=== PATIENT | female | born 1965 | race Caucasian/White ===

== ENCOUNTER 2024-02-07 14:16 | Outpatient (RCR) | payer MEDICAID, SELFPAY ==
--- NOTE | 2024-02-18 21:04 | CTCFLWUP_ITS ---
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 April 2023: Ms. Ross had myocardial infarction. During the workup she was found to have multiple le sions in the liver. 07/31/2023: Ms. 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 aspirin - 81 mg 1 tab Daily 2. Basaglar KwikPen U-100 Insulin - 100 unit/mL (3 mL) 10 Unit Daily 3. Eliquis - 5 mg 1 tab Twice a Day 4. Jardiance - 25 mg 1 tab Daily 5. levothyroxine - 112 mcg 1 tab Daily 6. lisinopril - 5 mg 1 tab Daily 7. loratadine - 10 mg 1 tab Daily 8. pantoprazole - 40 mg 1 Daily 9. rosuvastatin - 20 mg 1 tab Daily Medications Last Reconciled by Kelley Obrien MA on 02/07/2024 ALLERGIES: Penicillins REVIEW OF SYSTEMS: A complete 14-point review of systems was performed and is negative except as noted in interval histo ry. PHYSICAL EXAMINATION: VITAL SIGNS: Temperature?99.5, B/P?131/80, Oxygen?Saturation?95% Weight?140?lbs (Change?since?01/25/24 :?-3.8?lbs) PAIN: 0 - No pain GENERAL APPEARANCE: Appears well, in no apparent distress, appropriately interactive. HEENT: Normocephalic, no temporal wasting, normal conjunctiva, no scleral icterus, normal hearing, li ps without lesions, neck normal range of motion. CARDIOVASCULAR: Not assessed. PULMONARY: Normal respiratory effort, no respiratory distress or use of accessory muscles, speaking i n full sentences, no tachypnea. EXTREMITIES: No pedal edema or cyanosis. SKIN: Normal skin appearance. NEUROLOGIC: Alert and oriented x4. PSHYCHIATRIC: Appropriate affect, mood normal, behavior normal, intact thought and speech. LABORATORY DATA: I have personally reviewed and interpreted each of the patient?s relevant lab tests, abnormal finding s are below: Date ASSESSMENT/PLAN: 1. 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 No clinical symptoms. 2. Hypothyroidism of 40 years duration. Currently Ms. Ross is on levothyroxine. 3. Type 2 diabetes of 3 years duration 4. 70 pound weight loss in 1 year (September 2022?September 2023) 5. Myocardial infarction April 2023. Currently being followed by Dr. Guillen of [place]. 1. CBC, CMP, 24-hour urine 5-HIAA levels reviewed and levels are normalized for HIAA and S chromogran in A level 2. Dotatate PET CT scan- showed numerous lesions in liver 3. Thyroid ultrasound- negative 4. GI referral for EGD and colonoscopy 5. Please get records from Dr. Guillen, finance clerk of [place]. ORDERS: Abc,cmp chromogranin level and hiaa RETURN TO CLINIC: 4 weeks If weight not stable will start chemo BILLING AND COMPLIANCE: I reviewed external records from providers outside my specialty as summarized above. I spent a total of 50 minutes on this patient?s care on the day of their visit excluding time spent related to any bi lled procedures. This time includes time spent with the patient as well as time spent documenting in the medical record, reviewing patients records and tests, obtaining history, placing orders, communi cating with other healthcare professionals, counseling the patient, family or caregiver, and/or care coordination for the diagnoses above. Electronically Signed by: Cristi Escamilla MD T: 9:01 PM CC: PCP: Sherry Christiansen Referring: Sherry Christiansen This document was completed utilizing speech recognition software. Grammatical errors, random word in sertions, pronoun errors, and incomplete sentences are an occasional consequence of this system due t o software limitations, ambient noise, and hardware issues. Any formal questions or concerns about th e content, text or information contained within the body of this dictation should be directly address ed to the provider for clarification.
== END 2024-02-20 23:59 | disposition home or self-care (01) ==
LOC: SCTC 14:16
PROVIDERS: PCP Physician Assistant; Referring Provider Physician Assistant; Visit Provider Internal Medicine Hematology & Oncology
DX: C7A.8 Other malignant neuroendocrine tumors (principal); C7B.8 Other secondary neuroendocrine tumors; E03.9 Hypothyroidism, unspecified; E11.9 Type 2 diabetes mellitus without complications; Z79.890 Hormone replacement therapy
CPT/HCPCS: 96372; 99212; 99213; J2353; G0463

== ENCOUNTER → 2024-03-04 | Outpatient (CLI) | payer MEDICAID, SELFPAY ==
--- NOTE | 2024-03-04 08:37 | XR_ITS ---
Examination: CT chest with intravenous contrast 2-D sagittal and coronal reconstructions Exam date and time: March 04, 2024 0905 hours INDICATIONS: Multiple bilateral pulmonary nodules on CT abdomen study September 21, 2023, numerous bilateral noncalcified pulmonary nodules ranging in size from 3 mm to [address] chest July 31, 2023 CTDI:vol (mGy) 7.1 DLP: (mGycm) 290 Technique: Multiple axial sections of the thorax have been obtained. Sections have been obtained, 3 mm slice thickness. Mediastinal and lung density settings have been obtained. Intravenous contrast administered, 60 cc Isovue-370. 2-D sagittal, coronal images obtained. Low dose protocols were performed. One or more of the following dose reduction techniques were used; automated exposure control, adjustment of the mA and/or KV according to patient size, use of iterative reconstruction technique. Findings: No thoracic aortic aneurysm dilatation or dissection No pulmonary artery emboli No paratracheal tracheobronchial or bronchopulmonary adenopathy Bilateral pulmonary nodules stable, no new pulmonary nodules No pneumonia or pulmonary edema No visualized liver or splenic lesion Absent gallbladder No hydronephrosis Abdominal aorta normal size IMPRESSION: Stable bilateral pulmonary nodules compared with July 31, 2023, no new pulmonary nodules
== END | disposition home or self-care (01) ==
LOC: CCTX 08:08 → SCAT 08:11
PROVIDERS: PCP Physician Assistant; Referring Provider Internal Medicine Hematology & Oncology; Visit Provider Internal Medicine Hematology & Oncology
DX: R91.8 Other nonspecific abnormal finding of lung field (principal); C22.9 Malignant neoplasm of liver, not specified as primary or secondary; C7A.1 Malignant poorly differentiated neuroendocrine tumors
CPT/HCPCS: 71260; A4649; Q9967

== ENCOUNTER 2024-03-21 13:35 | Outpatient (RCR) | payer MEDICAID, SELFPAY | END 2024-03-22 23:59 | disposition home or self-care (01) | LOC: SCTC 13:35 | PROVIDERS: PCP Physician Assistant; Referring Provider Physician Assistant; Visit Provider Internal Medicine Hematology & Oncology | DX: C7A.8 Other malignant neuroendocrine tumors (principal); C78.02 Secondary malignant neoplasm of left lung; C78.01 Secondary malignant neoplasm of right lung; E03.9 Hypothyroidism, unspecified; Z79.890 Hormone replacement therapy; E11.9 Type 2 diabetes mellitus without complications | CPT/HCPCS: 96372; J2353 ==

== ENCOUNTER 2024-03-23 18:48 | Emergency (ER) | payer MEDICAID, SELFPAY ==
[2024-03-23 18:54] VITALS: PULSE 64; RESP 18; O2SAT 99
[2024-03-23 19:54] VITALS: BP 118/79; PULSE 66; RESP 18; TEMP 37.2; O2SAT 97; BMI 22.2
--- NOTE | 2024-03-23 20:02 | XR_ITS ---
Examination: CT brain head without contrast. 2-D sagittal coronal reconstructions Date and time of exam: March 23, 2024 at 2010 hrs. Indications: Frontal headaches beginning 2 days ago CTDI: vol (mGy):45.3 DLP: (mGycm):891 Technique: Multiple CT axial sections of the brain have been obtained, 5 mm slice thickness. Contrast has not been administered. 2-D sagittal, coronal reconstructions have been obtained Low dose protocols were performed. One or more of the following dose reduction techniques were used; automated exposure control, adjustment of the mA and/or KV according to patient size, use of iterative reconstruction technique. 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 Intra-axial or extra-axial hemorrhage density is not seen. No mass effect or midline shift Basal cisterns are not remarkable. Fourth ventricle is midline. Cranial vault intact. 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
--- NOTE | 2024-03-23 20:30 | PD.EDHA ---
ED Headache RME/HPI General Chief Complaint: Headache Stated Complaint: HEADACHE Time Seen by Provider: 03/23/24 20:01 Arrival date/time: 03/23/24 18:48 58F with history of neuroendocrine tumor, ID/CAD, CVA, DM, and hypothyroidism presents to ED with 2 days of PRADO. Patient denies URI symptoms, LOC, AMS, fall/trauma, vision changes, slurred speech, weakness, and Related Data Home Medications ?Medication ?Instructions ?Recorded ?Confirmed apixaban 5 mg tablet (Eliquis) 5 mg PO BID 09/21/23 09/21/23 Held on 09/21/23. Instructions: Resume on 09/23/23. continue medication on 09/23/23 aspirin 81 mg tablet 81 mg PO QDAY 09/21/23 09/21/23 Held on 09/21/23. Instructions: Resume on 09/23/23. Continue medication on 09/23/23 cetirizine 10 mg tablet 10 mg PO QDAY 09/21/23 09/21/23 empagliflozin 25 mg tablet 25 mg PO QDAY 09/21/23 09/21/23 (Jardiance) insulin glargine 100 unit/mL (3 10 unit subcut QPM 09/21/23 09/21/23 mL) subcutaneous pen (Basaglar KwikPen U-100 Insulin) levothyroxine 112 mcg tablet 112 mcg PO QDAY 09/21/23 09/21/23 metoclopramide HCl 5 mg tablet 5 mg PO Q6HR 09/21/23 09/21/23 pravastatin 40 mg tablet 40 mg PO QDAY 09/21/23 09/21/23 Allergies Allergy/AdvReac Type Severity Reaction Status Date / Time codeine Allergy Severe VOMITING Verified 03/23/24 18:57 Penicillins Allergy Severe Hives Verified 09/21/23 08:44 Course Orders Category Date Time Status Bedside COVID-19 Antigen Test NOW Care 03/23/24 20:02 Active Bedside Influenza A&B Antigen Test NOW Care 03/23/24 20:[address] head/brain wo con Stat Exams 03/23/24 20:02 Completed Metoclopramide [Reglan] Med 03/23/24 20:32 Discontinued 10 mg PO X1 ONE SUMAtriptan INJ [Imitrex Inj] Med 03/23/24 20:32 Discontinued 6 mg SC X1 ONE Vital Signs Vital signs: Vital Signs Temperature 99.0 F 03/23/24 19:54 Pulse Rate 66 03/23/24 19:54 Respiratory Rate 18 03/23/24 19:54 Blood Pressure 118/79 03/23/24 19:54 Pulse Oximetry (%) 97 03/23/24 19:54 Oxygen Delivery Method Room Air 03/23/24 19:54 Headache Medications / Prescriptions Medication administrations:: Medication Administration History Discontinued Medications Metoclopramide HCl (Metoclopramide 5 Mg Tablet) 10 mg PO X1 ONE Stop: 03/23/24 20:33 Sumatriptan Succinate (Sumatriptan Inj 6 Mg/0.5 Ml Vial) 6 mg SC X1 ONE Stop: 03/23/24 20:33 Discharge Plan Prescriptions/Referrals Prescriptions/Med Rec: No Action cetirizine 10 mg Tablet 10 mg PO QDAY pravastatin 40 mg Tablet 40 mg PO QDAY aspirin 81 mg Tablet 81 mg PO QDAY Jardiance 25 mg Tablet 25 mg PO QDAY metoclopramide HCl 5 mg Tablet 5 mg PO Q6HR levothyroxine 112 mcg Tablet 112 mcg PO QDAY insulin glargine [Basaglar KwikPen U-100 Insulin] 100 unit/mL (3 mL) Insulin Pen 10 unit SUBCUT QPM Eliquis 5 mg Tablet 5 mg PO BID Referrals: Sherry Christiansen PA-C [Primary Care Provider] - In 1 week Patient/Caregiver Discharge Instructions Print Language: Yoruba
--- NOTE | 2024-03-23 20:38 | EKG_ITS ---
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
--- NOTE | 2024-03-23 20:39 | EDRME_ITS ---
Rapid Medical Screening Exam [facility] Arrival date/time: 03/23/24 18:48 58F with history of neuroendocrine tumor, GA/CAD, DM, and hypothyroidism presents to ED with 2 days of PRADO and dizziness. Patient denies URI symptoms, LOC, AMS, fall/trauma, vision changes, slurred speech and weakness. Patient's head CT shows old CVA, but patient does not recall ever having one. Chief Complaint: Headache Time Seen by Provider: 03/23/24 20:01 Vital signs: Vital Signs Temperature 99.0 F 03/23/24 19:54 Pulse Rate 66 03/23/24 19:54 Respiratory Rate 18 03/23/24 19:54 Blood Pressure 118/79 03/23/24 19:54 Pulse Oximetry (%) 97 03/23/24 19:54 Oxygen Delivery Method Room Air 03/23/24 19:54
[2024-03-23] MEDS: METOCLOPRAMIDE 5 MG TABLET 10 MG PO (20:48)
[2024-03-23] MEDS: SUMAtriptan INJ 6 MG/0.5 ML VIAL SC (20:48)
[2024-03-23 21:30] LABS: Basophils # (Auto) 0.1 Thou/mm3 (0.0-0.2); Basophils % (Auto) 1 % (0-2.5); Eosinophils # (Auto) 0.2 Thou/mm3 (0.0-0.5); Eosinophils % (Auto) 2 % (0-10); Hematocrit 44.4 % (36.0-46.0); Hemoglobin 14.4 g/dL (12.0-16.0); Immature Granulocytes % (Auto) 0 % (0-0); Immature Granulocytes Auto 0.03 Thou/mm3 (0.00-0.00); Lymphocytes # (Auto) 2.5 Thou/mm3 (1.0-4.8); Lymphocytes % (Auto) 29 % (10-50); Mean Corpuscular HGB Conc 32.4 g/dl (31.0-37.0); Mean Corpuscular Hemoglobin 30.9 pg (25.0-35.0); Mean Corpuscular Volume 95 fL (80-100); Monocytes # (Auto) 0.6 Thou/mm3 (0.0-0.8); Monocytes % (Auto) 7 % (0-12); Neutrophils # (Auto) 5.1 Thou/mm3 (1.8-7.7); Neutrophils % (Auto) 60 % (37-80); Nucleated Red Blood Cell % 0 /100 WBC (0); Platelet Count 254 Thou/mm3 (140-440); RDW Standard Deviation 44.1 fL (36.4-46.3); Red Blood Count 4.66 Miln/mm3 (4.00-5.20); White Blood Count 8.4 Thou/mm3 (3.6-11.0)
[2024-03-23 21:31] VITALS: BP 113/78; PULSE 68; RESP 16; TEMP 36.8; O2SAT 94
[2024-03-23 21:31] LABS: Collection Type, Urine Clean Catch
[2024-03-23 22:06] LABS: Bilirubin,Urine Negative (Negative); Blood,Urine Negative (Negative); Clarity,Urine Clear (Clear/Hazy); Color,Urine Colorless (Lt Yel-Yel); Glucose, Urine 4+ (Negative); Ketones,Urine Negative (Negative); Leukocyte Esterase,Urine Negative (Negative); Nitrite,Urine Negative (Negative); Protein,Urine Negative (Neg - Trace); RBC,Urine 2 /hpf (0-3); Specific Gravity,Urine 1.014 (1.001-1.035); Squamous Epithelial Cell,Urine < 1 /hpf (0-5); Urobilinogen,Urine Negative mg/dL (0.0-1.0); WBC,Urine < 1 /hpf (0-5)
[2024-03-23 22:09] LABS: Amphetamine/Methamp Scrn,U Negative (Negative); Barbiturate Screen,Urine Negative (Negative); Benzodiazepines Screen,Urine Negative (Negative); Benzoylecgonine Screen, Ur Negative (Negative); Fentanyl Screen,Urine Negative (Negative); Opiate Screen,Urine Negative (Negative); THC Screen,Urine Negative (Negative)
[2024-03-23 22:11] LABS: Alanine Aminotransferase 7 U/L (10-49); Albumin, Serum 4.8 gm/dL (3.5-5.0); Albumin/Globulin Ratio 1.4 (1.2-2.2); Alkaline Phosphatase 97 U/L (46-116); Anion Gap 9 (7-16); Aspartate Amino Transferase 16 U/L (0-34); BUN/Creatinine Ratio 20 Ratio (12-20); Bilirubin,Total 0.4 mg/dL (0.3-1.2); Blood Urea Nitrogen 20 mg/dL (9-23); Calcium 10.6 mg/dL (8.3-10.6); Calcium (Corrected) 10.6 mg/dL (8.5-10.1); Chloride 106 mMol/L (98-107); Estimated Creatinine Clearance 58.9 mL/min (>60); Globulin 3.4 gm/dL (2.3-3.5); Glucose 72 mg/dL (74-106); Osmolality,Calculated 288 (275-295); Potassium 4.6 mMol/L (3.4-5.1); Sodium 144 mMol/L (136-145); Total Protein 8.2 gm/dL (5.7-8.2); Troponin I < 0.020 ng/mL (0.0-0.045); eGFR > 60 See Note
== END 2024-03-24 05:32 | disposition left against medical advice (07) ==
LOC: SERX 20:23
PROVIDERS: Physician Assistant; Emergency Provider Emergency Medicine; PCP Physician Assistant
DX: R51.9 Headache, unspecified (principal); Z53.29 Procedure and treatment not carried out because of patient's decision for other reasons; R42 Dizziness and giddiness
CPT/HCPCS: 36415; 70450; 80053; 80307; 81001; 84484; 85025; 87400; 87811; 93005; 96372; 99284; J3030; A9270

== ENCOUNTER 2024-04-18 12:55 | Outpatient (RCR) | payer MEDICAID, SELFPAY ==
--- NOTE | 2024-04-03 13:48 | CTCFLWUP_ITS ---
Patient: FLAKITA ROSS : 1965 Page 2 of 2 FOLLOW UP NOTE DATE OF SERVICE: 04/03/2024 NAME: FLAKITA ROSS ACCOUNT: [id number] : 1965 AGE: 58 INTERVAL HISTORY: Patient doing better since start of therapy . patient is doing well. She have not lost any further weight and is stable. ONCOLOGY HISTORY:?[facility] Hx? 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 April 2023: Ms. Ross had myocardial infarction. During the workup she was found to have multiple lesions in the liver. 07/31/2023: Ms. 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 aspirin - 81 mg 1 tab Daily 2. Basaglar KwikPen U-100 Insulin - 100 unit/mL (3 mL) 10 Unit Daily 3. Eliquis - 5 mg 1 tab Twice a Day 4. Jardiance - 25 mg 1 tab Daily 5. levothyroxine - 112 mcg 1 tab Daily 6. lisinopril - 5 mg 1 tab Daily 7. loratadine - 10 mg 1 tab Daily 8. pantoprazole - 40 mg 1 Daily 9. rosuvastatin - 20 mg 1 tab Daily?[place] Meds? Medications Last Reconciled by Kelley Obrien MA on 02/07/2024 ALLERGIES: Penicillins REVIEW OF SYSTEMS: A complete 14-point review of systems was performed and is negative except as noted in interval history. PHYSICAL EXAMINATION:?[place] PE? VITAL SIGNS: Temperature?98.9, B/P?114/78, Oxygen?Saturation?98% Weight?142?lbs (Change?since?03/21/24:?-0.8?lbs) PAIN: 0 - No pain ECOG Performance Status: 0 - Asymptomatic and fully active GENERAL APPEARANCE: Appears well, in no apparent distress, appropriately interactive. HEENT: Normocephalic, no temporal wasting, normal conjunctiva, no scleral icterus, normal hearing, lips without lesions, neck normal range of motion. CARDIOVASCULAR: Not assessed. PULMONARY: Normal respiratory effort, no respiratory distress or use of accessory muscles, speaking in full sentences, no tachypnea. EXTREMITIES: No pedal edema or cyanosis. SKIN: Normal skin appearance. NEUROLOGIC: Alert and oriented x4. PSHYCHIATRIC: Appropriate affect, mood normal, behavior normal, intact thought and speech. LABORATORY DATA: I have personally reviewed and interpreted each of the patient?s relevant lab tests, abnormal findings are below: Date 03/23/24 ??WHITE?BLOOD?COUNT?(Thou/mm3) 8.4 ??RED?BLOOD?COUNT?(Miln/mm3) 4.66 ??HEMOGLOBIN?(gm/dl) 14.4 ??HEMATOCRIT?(%) 44.4 ??PLATELET?COUNT?(Thou/mm3) 254 ??NEUTROPHILS?%,?AUTO?(%) 60 ??LYMPH?%,?AUTO?(%) 29 ??NEUTROPHILS,?AUTO?(Thou/mm3) 5.1 ASSESSMENT/PLAN:?Lulú Escamilla Assessment/Plan? 1. 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 No clinical symptoms. 2. Hypothyroidism of 40 years duration. Currently Ms. Ross is on levothyroxine. 3. Type 2 diabetes of 3 years duration 4. 70 pound weight loss in 1 year (September 2022?September 2023) 5. Myocardial infarction April 2023. Currently being followed by Dr. Guillen of [place]. 1. CBC, CMP, 24-hour urine 5-HIAA levels reviewed and levels are normalized for HIAA and S chromogranin A level 2. Dotatate PET CT scan- showed numerous lesions in liver 3. Thyroid ultrasound- negative Serum chromogranin A HIAA normal Weight is stable Continue Sandostatin #2 Patient having a toothache. Inflammation noted Ordered antibiotics and advised to follow-up with PCP/dentist CBC CMP HIAA serum chromogranin level Referral placed to [facility] for second opinion RETURN TO CLINIC: I will see her back in the clinic in 3 months. BILLING AND COMPLIANCE: I reviewed external records from providers outside my specialty as summarized above. I spent a total of 50 minutes on this patient?s care on the day of their visit excluding time spent related to any billed procedures. This time includes time spent with the patient as well as time spent documenting in the medical record, reviewing patients records and tests, obtaining history, placing orders, communicating with other healthcare professionals, counseling the patient, family or caregiver, and/or care coordination for the diagnoses above. Electronically Signed by: Cristi Escamilla MD T: 1:46 PM CC: PCP: Sherry Christiansen Referring: Sherry Christiansen This document was completed utilizing speech recognition software. Grammatical errors, random word insertions, pronoun errors, and incomplete sentences are an occasional consequence of this system due to software limitations, ambient noise, and hardware issues. Any formal questions or concerns about the content, text or information contained within the body of this dictation should be directly addressed to the provider for clarification.
== END 2024-04-19 23:59 | disposition home or self-care (01) ==
LOC: SCTC 12:55
PROVIDERS: PCP Physician Assistant; Referring Provider Physician Assistant; Visit Provider Internal Medicine Hematology & Oncology
DX: C7A.8 Other malignant neuroendocrine tumors (principal); C78.02 Secondary malignant neoplasm of left lung; C78.01 Secondary malignant neoplasm of right lung; E03.9 Hypothyroidism, unspecified; E11.9 Type 2 diabetes mellitus without complications; I25.2 Old myocardial infarction; K08.89 Other specified disorders of teeth and supporting structures
CPT/HCPCS: 96372; 99212; J2353; G0463

== ENCOUNTER 2024-05-16 12:55 | Outpatient (RCR) | payer MEDICAID, SELFPAY ==
[2024-05-16 13:36] LABS: Alanine Aminotransferase 11 U/L (10-49); Albumin, Serum 4.2 gm/dL (3.4-4.8); Albumin/Globulin Ratio 1.4 (1.2-2.2); Alkaline Phosphatase 96 U/L (46-116); Anion Gap 7 (7-16); Aspartate Amino Transferase 18 U/L (0-34); BUN/Creatinine Ratio 13 Ratio (12-20); Bilirubin,Total 0.4 mg/dL (0.3-1.2); Blood Urea Nitrogen 14 mg/dL (9-23); Calcium 9.4 mg/dL (8.3-10.6); Calcium (Corrected) 9.4 mg/dL (8.5-10.1); Carbon Dioxide 26.7 mMol/L (20.0-31.0); Chloride 102 mMol/L (98-107); Creatinine (Component) 1.1 mg/dL (0.6-1.3); Globulin 2.9 gm/dL (2.3-3.5); Glucose 218 mg/dL (74-106); Osmolality,Calculated 279 (275-295); Potassium 3.9 mMol/L (3.4-5.1); Sodium 136 mMol/L (136-145); Total Protein 7.1 gm/dL (5.7-8.2); eGFR 58 See Note
== END 2024-05-20 23:59 | disposition home or self-care (01) ==
LOC: SCTC 12:55
PROVIDERS: PCP Family Medicine; Referring Provider Internal Medicine Hematology & Oncology; Visit Provider Internal Medicine Hematology & Oncology
DX: C7A.8 Other malignant neuroendocrine tumors (principal); C7B.8 Other secondary neuroendocrine tumors; E03.9 Hypothyroidism, unspecified; Z79.890 Hormone replacement therapy; E11.9 Type 2 diabetes mellitus without complications; I25.2 Old myocardial infarction
CPT/HCPCS: 80053; 96360; 96372; J2353

== ENCOUNTER 2024-06-13 12:43 | Outpatient (RCR) | payer MEDICAID, SELFPAY | END 2024-06-19 23:59 | disposition home or self-care (01) | LOC: SCTC 12:43 | PROVIDERS: PCP Family Medicine; Referring Provider Family Medicine; Visit Provider Internal Medicine Hematology & Oncology | DX: C7A.8 Other malignant neuroendocrine tumors (principal); C7B.8 Other secondary neuroendocrine tumors | CPT/HCPCS: 96372; J2353 ==

== ENCOUNTER 2024-07-11 13:43 | Outpatient (RCR) | payer MEDICAID, SELFPAY ==
--- NOTE | 2024-07-01 14:49 | CTCFLWUP_ITS ---
Patient: FLAKITA ROSS : 1965 Page 2 of 2 FOLLOW UP NOTE DATE OF SERVICE: 07/01/2024 NAME: FLAKITA ROSS ACCOUNT: [id number] : 1965 AGE: 59 INTERVAL HISTORY: Subjective: Chief Complaint Persistent fatigue, uncontrolled diabetes, tired all the time History of Present Illness Zackery Lee is a patient with a history of cancer, presenting for follow-up. The patient reports ongoing fatigue but stable weight. The patient's main complaint is persistent tiredness. They state, I'm still tired, without specifying onset or severity. Despite the fatigue, the patient reports no recent weight loss, which is noted as a positive indicator of disease stability. The patient's current weight is 140 pounds, down from 212 pounds at the start of their illness, representing a total weight loss of 75 pounds over an unspecified period. The patient also mentions difficulty controlling their diabetes, describing it as off the hook. They report taking Jardiance and insulin for diabetes management. The patient describes a concerning blood sugar fluctuation, stating that after a breakfast of scrambled eggs and water, their blood sugar naman from 146 to 226. Their diet is reportedly limited, with the patient stating, I hardly eat anything. The patient mentions a recent consultation with a doctor in [place] who suggested a possible GI involvement and recommended a colonoscopy. However, the patient reports no current issues with diarrhea, which was previously a concern. Medications and Supplements - Jardiance - Insulin Review of Systems General: Positive for fatigue. Negative for weight loss. Endocrine: Positive for uncontrolled diabetes. Gastrointestinal: Negative for diarrhea. 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 April 2023: Ms. Ross had myocardial infarction. During the workup she was found to have multiple lesions in the liver. 07/31/2023: Ms. 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 aspirin - 81 mg 1 tab Daily 2. Augmentin - 500-125 mg 1 tab 1 tab twice daily 3. Basaglar KwikPen U-100 Insulin - 100 unit/mL (3 mL) 10 Unit Daily 4. Eliquis - 5 mg 1 tab Twice a Day 5. Jardiance - 25 mg 1 tab Daily 6. levothyroxine - 112 mcg 1 tab Daily 7. lisinopril - 5 mg 1 tab Daily 8. loratadine - 10 mg 1 tab Daily 9. pantoprazole - 40 mg 1 Daily 10. rosuvastatin - 20 mg 1 tab Daily Medications Last Reconciled by Yoly Lynn MD on 07/01/2024 ALLERGIES: Penicillins REVIEW OF SYSTEMS: A complete 14-point review of systems was performed and is negative except as noted in interval history. PHYSICAL EXAMINATION: VITAL SIGNS: Temperature?98.3, B/P?110/71, Oxygen?Saturation?98% Weight?140?lbs (Change?since?06/13/24:?-1.4?lbs) PAIN: 0 - No pain ECOG Performance Status: 1 - Symptomatic; ambulatory; restricted in strenuous activity GENERAL APPEARANCE: Appears well, in no apparent distress, appropriately interactive. HEENT: Normocephalic, no temporal wasting, normal conjunctiva, no scleral icterus, normal hearing, lips without lesions, neck normal range of motion. CARDIOVASCULAR: Not assessed. PULMONARY: Normal respiratory effort, no respiratory distress or use of accessory muscles, speaking in full sentences, no tachypnea. EXTREMITIES: No pedal edema or cyanosis. SKIN: Normal skin appearance. NEUROLOGIC: Alert and oriented x4. PSHYCHIATRIC: Appropriate affect, mood normal, behavior normal, intact thought and speech. LABORATORY DATA: I have personally reviewed and interpreted each of the patient?s relevant lab tests, abnormal findings are below: Date 03/23/24 05/16/24 ??WHITE?BLOOD?COUNT?(Thou/mm3) 8.4 ? ??RED?BLOOD?COUNT?(Miln/mm3) 4.66 ? ??HEMOGLOBIN?(gm/dl) 14.4 ? ??HEMATOCRIT?(%) 44.4 ? ??PLATELET?COUNT?(Thou/mm3) 254 ? ??NEUTROPHILS?%,?AUTO?(%) 60 ? ??LYMPH?%,?AUTO?(%) 29 ? ??NEUTROPHILS,?AUTO?(Thou/mm3) 5.1 ? ??GLUCOSE,RANDOM?(mg/dL) 72?L 218?H ??BLOOD?UREA?NITROGEN?(mg/dL) 20 14 ??CREATININE?(mg/dL) 1.00 1.10 ??SODIUM?(mmol/L) 144 136 ??POTASSIUM?(mmol/L) 4.6 3.9 ??CHLORIDE?(mmol/L) 106 102 ??CrCl?(CandG)?(ml/min) 61.94 54.99 ??AST/SGOT?(Unit/L) 16 18 ??ALT/SGPT?(Unit/L) 7?L 11 ??ALKALINE?PHOSPHATASE?(Unit/L) 97 96 ??BILIRUBIN,?TOTAL?(mg/dL) 0.4 0.4 ??PROTEIN?TOTAL?(gm/dl) 8.2 7.1 ??ALBUMIN,?SERUM?(gm/dl) 4.8 4.2 ??GLOBULIN?(gm/dl) 3.4 2.9 ??ALBUMIN/GLOBULIN?RATIO 1.4 1.4 ??CALCIUM,?SERUM?(mg/dL) 10.6 9.4 ??CALCIUM?SERUM?(CORRECTED)?(mg/dL) 10.6?H 9.4 ASSESSMENT/PLAN: 1. 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 No clinical symptoms. 2. Hypothyroidism of 40 years duration. Currently Ms. Ross is on levothyroxine. 3. Type 2 diabetes of 3 years duration 4. 70 pound weight loss in 1 year (September 2022?September 2023) 5. Myocardial infarction April 2023. Currently being followed by Dr. Guillen of [facility]. Assessment and Plan: Zackery lee, patient with neuroendocrine tumor metastatic to liver, presents for follow-up with improving chromogranin levels and stable weight, but reports persistent fatigue and uncontrolled diabetes. Neuroendocrine tumor metastatic to liver Assessment: Patient's condition appears stable based on improving chromogranin levels (61 in May, down from 74 in March and 65 prior) and stable weight. Previous PET-DOTATATE scan from November showed numerous liver lesions. Patient reports persistent fatigue but denies weight loss. Lab results show WBC 6.8, hemoglobin 13.8, and normal liver enzymes, further supporting disease stability. Plan: - Order repeat PET-DOTATATE scan to assess current status of liver lesions - Refer to [facility] for evaluation of potential new treatment options, including targeted radionuclide therapy - Continue current treatment regimen - Follow-up appointment in 3 months - Advise patient to maintain current weight and avoid alcohol consumption Uncontrolled diabetes mellitus Assessment: Patient reports difficulty controlling blood glucose levels despite current management with Jardiance and insulin. Recent example of blood glucose rising from 146 to 226 after a meal of scrambled eggs and water suggests significant glycemic instability. Plan: - Refer to endocrinology for comprehensive diabetes management - Advise patient on importance of proper diet and medication adherence Fatigue Assessment: Patient reports persistent fatigue. This symptom may be related to the underlying neuroendocrine tumor, diabetes, or other factors. Plan: - Monitor fatigue in context of overall disease management and diabetes control - Reassess at next follow-up appointment ORDERS: Order # Description [id number] Comprehensive Metabolic Panel - 12 + CBC with Auto Diff [id number] Chromogranin A [id number] Follow Up 3 Months [id number] CBC + Comprehensive Metabolic Panel [id number] Lab Appointment [id number] CBC + Comprehensive Metabolic Panel [id number] Lab Appointment [id number] CBC + Comprehensive Metabolic Panel [id number] Lab Appointment [id number] CBC + Comprehensive Metabolic Panel [id number] Lab Appointment [id number] CBC + Comprehensive Metabolic Panel [id number] Lab Appointment [id number] PET/CT of Skull to mid-thigh for Restaging [id number] CBC + Comprehensive Metabolic Panel [id number] Lab Appointment [id number] CBC + Comprehensive Metabolic Panel [id number] Lab Appointment [id number] CBC + Comprehensive Metabolic Panel [id number] Lab Appointment [id number] CBC + Comprehensive Metabolic Panel [id number] Lab Appointment [id number] CBC + Comprehensive Metabolic Panel [id number] Lab Appointment [id number] CBC + Comprehensive Metabolic Panel [id number] Lab Appointment [id number] CBC + Comprehensive Metabolic Panel [id number] Lab Appointment [id number] CBC + Comprehensive Metabolic Panel [id number] Lab Appointment [id number] CBC + Comprehensive Metabolic Panel [id number] Lab Appointment [id number] CBC + Comprehensive Metabolic Panel [id number] Lab Appointment [id number] CBC + Comprehensive Metabolic Panel [id number] Lab Appointment [id number] CBC + Comprehensive Metabolic Panel [id number] Lab Appointment RETURN TO CLINIC: BILLING AND COMPLIANCE: I reviewed external records from providers outside my specialty as summarized above. I spent a total of 50 minutes on this patient?s care on the day of their visit excluding time spent related to any billed procedures. This time includes time spent with the patient as well as time spent documenting in the medical record, reviewing patients records and tests, obtaining history, placing orders, communicating with other healthcare professionals, counseling the patient, family or caregiver, and/or care coordination for the diagnoses above. Electronically Signed by: Cristi Escamilla MD T: 2:47 PM CC: PCP: Fan Saucedo Referring: Fan Saucedo This document was completed utilizing speech recognition software. Grammatical errors, random word insertions, pronoun errors, and incomplete sentences are an occasional consequence of this system due to software limitations, ambient noise, and hardware issues. Any formal questions or concerns about the content, text or information contained within the body of this dictation should be directly addressed to the provider for clarification.
== END 2024-07-20 23:59 | disposition home or self-care (01) ==
LOC: SCTC 13:43
PROVIDERS: PCP Family Medicine; Referring Provider Family Medicine; Visit Provider Internal Medicine Hematology & Oncology
DX: C7A.8 Other malignant neuroendocrine tumors (principal); C7B.8 Other secondary neuroendocrine tumors; E03.9 Hypothyroidism, unspecified; Z79.890 Hormone replacement therapy; E11.65 Type 2 diabetes mellitus with hyperglycemia; Z79.4 Long term (current) use of insulin; Z79.84 Long term (current) use of oral hypoglycemic drugs; R53.83 Other fatigue
CPT/HCPCS: 96372; 99212; J2353; G0463

== ENCOUNTER 2024-07-24 14:53 | Inpatient (IN) | payer MEDICAID, SELFPAY ==
[2024-07-24] VITALS (7 sets, daily range): BP systolic 99–122; BP diastolic 61–73; PULSE 109–116; RESP 15–20; TEMP 36.7–36.8; O2SAT 96–100
[2024-07-24] MEDS: SODIUM CHLORIDE 0.9% 1000 ML 1,000 ML 999 ML IV ×2 (15:42→18:02)
[2024-07-24] MEDS: ONDANSETRON INJ 2 MG/ML INJ 2 ML 4 MG IVP ×2 (15:42→22:16)
[2024-07-24 16:07] LABS: Basophils % (Auto) 0 % (0-2.5); Eosinophils % (Auto) 0 % (0-10); Hematocrit 45.3 % (36.0-46.0); Hemoglobin 14.4 g/dL (12.0-16.0); Immature Granulocytes % (Auto) 1 % (0-0); Immature Granulocytes Auto 0.16 Thou/mm3 (0.00-0.00); Lymphocytes # (Auto) 1.2 Thou/mm3 (1.0-4.8); Lymphocytes % (Auto) 8 % (10-50); Mean Corpuscular HGB Conc 31.8 g/dl (31.0-37.0); Mean Corpuscular Volume 101 fL (80-100); Monocytes # (Auto) 0.6 Thou/mm3 (0.0-0.8); Monocytes % (Auto) 4 % (0-12); Neutrophils # (Auto) 12.6 Thou/mm3 (1.8-7.7); Neutrophils % (Auto) 86 % (37-80); Nucleated Red Blood Cell % 0 /100 WBC (0); Platelet Count 274 Thou/mm3 (140-440); RDW Standard Deviation 48.1 fL (36.4-46.3); White Blood Count 14.5 Thou/mm3 (3.6-11.0)
[2024-07-24 16:21] LABS: Alanine Aminotransferase 23 U/L (10-49); Albumin, Serum 4.4 gm/dL (3.4-4.8); Albumin/Globulin Ratio 1.6 (1.2-2.2); Alkaline Phosphatase 100 U/L (46-116); Aspartate Amino Transferase 22 U/L (0-34); BUN/Creatinine Ratio 16 Ratio (12-20); Bilirubin,Total 0.4 mg/dL (0.3-1.2); Blood Urea Nitrogen 26 mg/dL (9-23); Calcium 9.2 mg/dL (8.3-10.6); Calcium (Corrected) 9.2 mg/dL (8.5-10.1); Chloride 105 mMol/L (98-107); Creatinine (Component) 1.6 mg/dL (0.6-1.3); Globulin 2.7 gm/dL (2.3-3.5); Glucose 393 mg/dL (74-106); Lipase 24 U/L (12-53); Osmolality,Calculated 309 (275-295); Potassium 4.4 mMol/L (3.4-5.1); Sodium 145 mMol/L (136-145); Total Protein 7.1 gm/dL (5.7-8.2); eGFR 37 See Note
--- NOTE | 2024-07-24 16:30 | PC.NURSE ---
PT CAME IN DUE TO NAUSEA AND VOMITING SINCE YESTERDAY WITH BACK PAIN. PT STATED THAT SHE HAS HX OF DM AND USES INSULIN. PT IS ALSO HAVING BODY CHILLS BUT HAS DENIES FEVER. FLUID BOLUS STARTED AND PT HAS IV LINE TO RT AC. PT PLACED ON MONITOR/PULSE OX.
[2024-07-24 16:31] LABS: Anion Gap 23 (7-16); Carbon Dioxide 17.5 mMol/L (20.0-31.0)
[2024-07-24 17:01] LABS: Collection Type, Urine Clean Catch
[2024-07-24 17:12] LABS: Bilirubin,Urine Negative (Negative); Blood,Urine Trace (Negative); Clarity,Urine Clear (Clear/Hazy); Color,Urine Lt-Yellow (Lt Yel-Yel); Culture Indicated,Urine Not Indicated; Glucose, Urine 4+ (Negative); Ketones,Urine 2+ (Negative); Leukocyte Esterase,Urine Positive (Negative); Nitrite,Urine Negative (Negative); PH,Urine 5.5 (5.0-7.0); Protein,Urine Trace (Neg - Trace); RBC,Urine 3 /hpf (0-3); Squamous Epithelial Cell,Urine 1 /hpf (0-5); Urobilinogen,Urine Negative mg/dL (0.0-1.0); WBC,Urine 6 /hpf (0-5)
--- NOTE | 2024-07-24 17:37 | PD.EDADULT ---
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 She is complaining of generalized abdominal pain due to the amount of vomiting. She states her blood sugars have been elevated for an unknown reason. She currently takes Basaglar 15 units at bedtime, Jardiance 25 mg daily, and uses a short acting insulin with her evening meal according to sliding scale. Her last dose of insulin was 4 units. She denies any recent illness with fever, chills, cough, upper respiratory symptoms. Related Data Home Medications ?Medication ?Instructions ?Recorded ?Confirmed apixaban 5 mg tablet (Eliquis) 5 mg PO BID 09/21/23 09/21/23 Held on 09/21/23. Instructions: Resume on 09/23/23. continue medication on 09/23/23 aspirin 81 mg tablet 81 mg PO QDAY 09/21/23 09/21/23 Held on 09/21/23. Instructions: Resume on 09/23/23. Continue medication on 09/23/23 cetirizine 10 mg tablet 10 mg PO QDAY 09/21/23 09/21/23 empagliflozin 25 mg tablet 25 mg PO QDAY 09/21/23 09/21/23 (Jardiance) insulin glargine 100 unit/mL (3 10 unit subcut QPM 09/21/23 09/21/23 mL) subcutaneous pen (Basaglar KwikPen U-100 Insulin) levothyroxine 112 mcg tablet 112 mcg PO QDAY 09/21/23 09/21/23 metoclopramide HCl 5 mg tablet 5 mg PO Q6HR 09/21/23 09/21/23 pravastatin 40 mg tablet 40 mg PO QDAY 09/21/23 09/21/23 Allergies Allergy/AdvReac Type Severity Reaction Status Date / Time codeine Allergy Severe VOMITING Verified 07/24/24 14:57 Penicillins Allergy Severe Hives Verified 07/24/24 14:57 Review of Systems Review of Systems Systems Reviewed: All systems reviewed, normal except as documented Past Medical History Past Medical History NEUROLOGIC: Negative Neurological Disorders, Cerebrovascular Accident, Transient Ischemic Attacks (TIA), Dementia, Alzheimer's Disease, Parkinson's Disease, Brain Tumor, Meningitis, Seizures, Epilepsy, Multiple Sclerosis, Cerebral Palsy, Amyotrophic Lateral Sclerosis (ALS/Angelika Gehrig's), Guillain-[place] Syndrome, Spina Bifida, Paralysis, Peripheral Neuropathy, Calderón's Palsy, Subdural Hematoma, Migraine, Head Trauma, Spinal Cord Injury or Traumatic Brain Injury CARDIAC: Positive Cardiac Disorders ([facility] HEART ATTACK APRIL 2023), Heart Murmur, Hypercholesterolemia and Hypertension; Negative Myocardial Infarction, Cardiac Arrhythmia, Atrial Fibrillation, Angina, Coronary Artery Disease, Atherosclerotic Heart Disease, Peripheral Vascular Disease, Aneurysm, Congestive Heart Failure, Congenital Heart Disease, Valvular Heart Disease, Rheumatic Fever, Cardiomyopathy, Edema, Pericarditis, Cellulitis, Deep Vein Thrombosis, Hypotension or Varicose Veins RESPIRATORY: Negative Chronic Obstructive Pulmonary Disease (COPD), Asthma, Bronchitis, Emphysema, Pneumonia, Pulmonary Fibrosis, Cystic Fibrosis, Tuberculosis, Pulmonary Embolism, Pulmonary Edema or Sleep Apnea GASTROINTESTINAL: Positive Gastrointestinal Disorders and Gall Bladder Disease (REMOVE); Negative Hepatitis, Cirrhosis, Pancreatitis, Celiac Disease, Gastrointestinal Bleed, Esophageal Varices, Quigley's Esophagus, Colitis, Ulcerative Colitis, Diverticulitis, Diverticulosis, Ulcer, Colorectal Cancer, Irritable Bowel, Crohn's Disease, Obstructive Bowel, Hiatal Hernia, Hemorrhoids, Gastroesophageal Reflux Disease or Obesity GENITOURINARY: Negative Genitourinary Disorders, Renal Disease, Kidney Stones, Polycystic Kidney Disease, Neurogenic Bladder, Inguinal Hernia, Dialysis, Prostate Cancer or Benign Prostatic Hyperplasia REPRODUCTIVE: Positive Previous Pregnancies (3); Negative Breast Cancer, Endometriosis, Genital Herpes, Gonorrhea, Pelvic Inflammatory Disease, Syphilis, Testicular Cancer or Uterine Prolapse MUSCULOSKELETAL: Positive Musculoskeletal Disorders and Arthritis; Negative Muscular Dystrophy, Myasthenia Gravis, Marfan's Syndrome, Bone Cancer, Rheumatoid Arthritis, Osteoporosis, Degenerative Disk Disease, Gout, Scoliosis, Carpal Tunnel Syndrome, Fibromyalgia, Fractures, Degenerative Joint Disease, Osteomyelitis or Poliovirus ENT: Negative Cataracts, Glaucoma, Blind, Retinal Detachment, Macular Degeneration, Ear Infection, Deafness, Head Trauma or Eye Prosthesis ENDOCRINE: Positive Endocrine Disorders, Diabetes Mellitus Type 2 and Hypoglycemia; Negative Diabetes Mellitus Type 1, Karon's Syndrome, Waller's Disease, Hyperthyroidism, Hypothyroidism, Parathyroid Disease, Pituitary Disease, Systemic Lupus Erythematosus, Syndrome of Inappropriate Antidiuretic Hormone (SIADH), Adrenal Disease or Graves' Disease HEMATOLOGIC: Positive Blood Disorders and Anemia; Negative Leukemia, Hemophilia, Thalassemia, Sickle Cell Disease or Clotting Problems PSYCHO/SOCIAL: Negative Psychiatric Problems, Schizophrenia, Recreational Drug Use, Bipolar Disorder, Depression, Anxiety, Behavior Problems, Self-Mutilation, Attention Deficit Disorder, Attention Deficit Hyperactivity Disorder, Depression, Post Traumatic Stress Disorder or Eating Disorder OTHER HISTORY: Positive Chicken Pox, Cancer (liver 2023) and Lung Cancer (2023 neuroendocrine tumor); Negative Hospitalization, Autoimmune Disease, Down Syndrome, Autism, Developmental Delay, Shingles, Falls, Blood Transfusions, Blood Transfusion Reaction, Anesthesia Reactions, Organ Transplant, Chemotherapy, Radiation Therapy, Hyperbaric Therapy, MRSA, VRSA, Vancomycin-Resistant Enterococci, Human Immunodeficiency Virus (HIV), Measles, Mumps, Rubella ([place] Measles), Pertussis, Clostridium Difficile, Breast Cancer, Cervical Cancer, Colorectal Cancer, Ovarian Cancer, Prostate Cancer or Testicular Cancer Family History FAMILY HISTORY: Positive Family Respiratory Disorders (COPD), Family Cancer (DAD LEUKEMIA) and Family Surgery; Negative Family Psychiatric Problems, Family Cardiac Disorders, Family Gastrointestinal Problems or Family Anesthesia Reaction Surgical History SURGICAL: Positive Cardiac Catheterization, Angiogram and Tubal Ligation; Negative Cardiac Surgery, Open Heart Surgery, Coronary Artery Bypass Graft, Valve Replacement, Vascular Surgery, Coronary Stent, Pacemaker, Auto Implanted Cardiovert Defib, Carotid Endarterectomy, Endocrine Surgery, Thyroidectomy, Ear Surgery, Tympanostomy Tube, Eye Surgery, Nose Surgery, Oral Surgery, Tonsillectomy, Adenoidectomy, Cochlear Implant, Corneal Transplant, Throat Surgery, Abdominal Surgery, Tracheostomy, Gastric Bypass Surgery, Gastrostomy, Bowel Surgery, Nephrectomy, Transurethral Resection, Joint Replacement, Amputation, Open Reduction Internal Fixation, Arthroscopy, Neurologic Surgery, Brain Shunt, Mastectomy, Lumpectomy, Hysterectomy, Section, Vasectomy or Organ Transplant Social History SMOKING STATUS: Never smoker SUBSTANCE USE: does not use ED Exam Narrative Physical exam: Alert and oriented, pleasant 59-year-old female, mild acute distress due to nausea. Dry mucous membranes. Lungs are clear, regular rate and rhythm. Abdomen is soft with mild RUQ tenderness. Moves all extremities well. 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 She is complaining of generalized abdominal pain due to the amount of vomiting. She states her blood sugars have been elevated for an unknown reason. She currently takes Basaglar 15 units at bedtime, Jardiance 25 mg daily, and uses a short acting insulin with her evening meal according to sliding scale. Her last dose of insulin was 4 units. She denies any recent illness with fever, chills, cough, upper respiratory symptoms. Alert and oriented, pleasant 59-year-old female, mild acute distress due to nausea. Dry mucous membranes. Lungs are clear, regular rate and rhythm. Abdomen is soft with mild RUQ tenderness. Trace bilateral lower extremity pitting edema. Moves all extremities well. Labs reveal an elevated white count of 14.5, normal H&H, elevated ANC of 12.6. CMP reveals a CO2 of 17.5, gap of 23, BUN 26, creatinine 1.6, EGFR 37, glucose 393, A1c 9.9, osmolality 309, lactic acid 3.0, CRP 3.2, serum ketones 5.9, procalcitonin 0.99. ABG reveals a pH of 7.20, pCO2 29, PO2 100, bicarb 11, base excess -16. Urinalysis reveals 4+ glucose, 2+ ketones, 6 WBCs, no bacteria. Chest x-ray reveals no active disease. Orders Category Date Time Status Bedside Blood Glucose NOW Care 07/24/24 19:24 Active Glucose [Bedside Blood Glucose] NOW Care 07/24/24 21:57 Active Intake and Output Routine Care 07/24/24 20:25 Ordered XR chest 1V portable Stat Exams 07/24/24 20:23 Completed Acetone [Beta Hydroxybutyrate] Stat Lab 07/24/24 20:41 Completed Arterial Blood Gas Stat Lab 07/24/24 20:49 Completed Blood Culture (Lab) Stat Lab 07/24/24 20:41 Received CBC Stat Lab 07/24/24 15:57 Completed CRP [C-Reactive Protein] Stat Lab 07/24/24 20:41 Completed Comprehensive Metabolic Panel Stat Lab 07/24/24 15:57 Completed Glycohemoglobin w (eAG) Stat Lab 07/24/24 20:41 Completed Lactate (Lactic Acid) Stat Lab 07/24/24 20:41 Results Lipase Stat Lab 07/24/24 15:57 Completed Magnesium Stat Lab 07/24/24 20:41 Completed Phosphorous Stat Lab 07/24/24 20:41 Completed Procalcitonin Stat Lab 07/24/24 20:41 Completed UA, C/S IF [Urinalysis, C/S if Indicated] Stat Lab 07/24/24 16:55 Completed Urinalysis Stat Lab 07/24/24 20:25 Ordered Urine Culture Stat Lab 07/24/24 16:55 Received Morphine Inj Med 07/24/24 21:49 Discontinued 4 mg IVP X1 ONE Ondansetron Inj [Zofran Inj] Med 07/24/24 15:10 Discontinued 4 mg IVP X1 ONE Ondansetron Inj [Zofran Inj] Med 07/24/24 21:49 Discontinued 4 mg IVP X1 ONE Ringers Lactated 1000 ml [Lactated Ringers] 1,000 ml Med 07/24/24 17:49 Discontinued IV 999 mls/hr Sodium Chloride 0.9% 1000 ml [Ns] 1,000 ml Med 07/24/24 15:10 Discontinued IV 999 mls/hr Sodium Chloride 0.9% 1000 ml [Ns] 1,000 ml Med 07/24/24 17:50 Discontinued IV 999 mls/hr Vital Signs Vital signs: Vital Signs Temperature 98.2 F 07/24/24 15:08 Pulse Rate 116 H 07/24/24 15:08 Respiratory Rate 20 07/24/24 15:08 Blood Pressure 99/64 07/24/24 15:08 Pulse Oximetry (%) 96 07/24/24 15:08 Oxygen Delivery Method Room Air 07/24/24 15:08 Critical Care Time Critical Care Time Critical Care Time: Yes Total Critical Care Time (min.): 60 Discharge Plan Plan Patient Disposition: Admit Acute Care w/in Hospital Discharge Disposition comment: Stable Prescriptions/Referrals Prescriptions/Med Rec: No Action cetirizine 10 mg Tablet 10 mg PO QDAY pravastatin 40 mg Tablet 40 mg PO QDAY aspirin 81 mg Tablet 81 mg PO QDAY Jardiance 25 mg Tablet 25 mg PO QDAY metoclopramide HCl 5 mg Tablet 5 mg PO Q6HR levothyroxine 112 mcg Tablet 112 mcg PO QDAY insulin glargine [Basaglar KwikPen U-100 Insulin] 100 unit/mL (3 mL) Insulin Pen 10 unit SUBCUT QPM Eliquis 5 mg Tablet 5 mg PO BID Referrals: No Primary/Family,Physician [Primary Care Provider] - In 1 week Problem List Clinical Impression: DKA (diabetic ketoacidosis) Patient/Caregiver Discharge Instructions Print Language: Togolese Stand Alone Forms: Keiko Award Info., Patient Portal Info Letter PA/DAYLIN Supervising Physician TRACY/DAYLIN Supervising Physician: Dr. 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 She is complaining of generalized abdominal pain due to the amount of vomiting. She states her blood sugars have been elevated for an unknown reason. She currently takes Basaglar 15 units at bedtime, Jardiance 25 mg daily, and uses a short acting insulin with her evening meal according to sliding scale. Her last dose of insulin was 4 units. She denies any recent illness with fever, chills, cough, upper respiratory symptoms. Alert and oriented, paul 59-year-old female, mild acute distress due to nausea. Dry mucous membranes. Lungs are clear, regular rate and rhythm. Abdomen is soft with mild RUQ tenderness. Trace bilateral lower extremity pitting edema. Moves all extremities well. Labs reveal an elevated white count of 14.5, normal H&H, elevated ANC of 12.6. CMP reveals a CO2 of 17.5, gap of 23, BUN 26, creatinine 1.6, EGFR 37, glucose 393, A1c 9.9, osmolality 309, lactic acid 3.0, CRP 3.2, serum ketones 5.9, procalcitonin 0.99. ABG reveals a pH of 7.20, pCO2 29, PO2 100, bicarb 11, base excess -16. Urinalysis reveals 4+ glucose, 2+ ketones, 6 WBCs, no bacteria. Chest x-ray reveals no active disease. She was given D50 and started on an Insulin drip . She has normal Potassium and Magnesium level at this time. Dr. Hess contacted for admission. Clinical Information Provided by patient Medical Records Reviewed [facility] Meds/Rx Considered, not Ordered None Labs/Rad/Tests considered, not Ordered None Chronic Illness/Social Conditions which may negatively complicate care or outcome(s)-explain: None or not applicable Lab Interpretation Labs: interpreted by vt Lab(s) interpretation(s): Labs reveal an elevated white count of 14.5, normal H&H, elevated ANC of 12.6. CMP reveals a CO2 of 17.5, gap of 23, BUN 26, creatinine 1.6, EGFR 37, glucose 393, A1c 9.9, osmolality 309, lactic acid 3.0, CRP 3.2, serum ketones 5.9, procalcitonin 0.99. ABG reveals a pH of 7.20, pCO2 29, PO2 100, bicarb 11, base excess -16. Urinalysis reveals 4+ glucose, 2+ ketones, 6 WBCs, no bacteria. Repeat blood sugar 337. Imaging Imaging interpretation: other (Per radiologist.) Radiology reports / interpretation(s): Chest x-ray reveals no active disease. Medication Administration(s) Medication Administration History Discontinued Medications Sodium Chloride (Ns) 1,000 mls @ 999 mls/hr IV .Q1H1M ONE Stop: 07/24/24 16:10 Last Infusion: 07/24/24 16:36 Dose: Infused Documented By: Admin: 07/24/24 15:42 Dose: 999 mls/hr Documented By: SOILA Lactated Ringer's (Lactated Ringers) 1,000 mls @ 999 mls/hr IV .Q1H1M ONE Stop: 07/24/24 18:49 Last Admin: 07/24/24 17:51 Dose: Not Given Documented By: NERI Non-Admin Reason: Cancelled by Provider Sodium Chloride (Ns) 1,000 mls @ 999 mls/hr IV .Q1H1M ONE Stop: 07/24/24 18:50 Last Infusion: 07/24/24 19:18 Dose: Infused Documented By: Admin: 07/24/24 18:02 Dose: 999 mls/hr Documented By: NERI Morphine Sulfate (Morphine Sulf Inj 10 Mg/Ml Vial) 4 mg IVP X1 ONE Stop: 07/24/24 21:50 Ondansetron HCl (Ondansetron Inj 2 Mg/Ml Inj 2 Ml) 4 mg IVP X1 ONE; Protocol Stop: 07/24/24 15:11 Last Admin: 07/24/24 15:42 Dose: 4 mg Documented By: SOILA Ondansetron HCl (Ondansetron Inj 2 Mg/Ml Inj 2 Ml) 4 mg IVP X1 ONE; Protocol Stop: 07/24/24 21:50 Sodium chloride 2 L, morphine 4 mg IV and Zofran 4 mg IV x 2, D50 IV and Insulin Drip. Diagnosis Differential diagnosis: N/V, gastroenteritis, pyelo, PNA, DKA, hyperosmolar non-ketotic hyperglycem Most likely dx, and/or detailed dx discussion: DKA Dispositon Disposition: Admit
--- NOTE | 2024-07-24 19:21 | PC.NURSE ---
REPORT GIVEN TO FABY ALFARO.
--- NOTE | 2024-07-24 20:23 | XR_ITS ---
Examination: AP chest single view TECHNIQUE: AP portable upright chest single view Date and time: July 24, [id number] hours Comparison November 06, 2021 INDICATIONS: Vomiting today. FINDINGS: Normal heart size. No aspiration pneumonia. No pulmonary edema. The osseous structures are intact IMPRESSION: No active disease
[2024-07-24 20:58] LABS: Base Excess -16 (-3-3); HCO3 11 mEq/L (20-26); Inspired Oxygen, FIO2 21 %; O2 Saturation 98 % (91-98); PCO2 29 mmHg (32.0-48.0); PO2 100 mmHg (83-108)
[2024-07-24 21:05] LABS: Allen Test Performed/OK; Puncture Site Right Radial
[2024-07-24 21:07] LABS: Beta Hydroxybutyrate 5.9 mmol/L (<0.6)
[2024-07-24 21:12] LABS: Glucose Estimated Average 237 mg/dL (80-131); Hemoglobin A1C 9.9 % Hgb (4.8-6.0)
[2024-07-24 21:19] LABS: C-Reactive Protein 3.2 mg/dL (0.0-0.9); Magnesium 2.3 mg/dL (1.6-2.6); Phosphorous 4.9 mg/dL (2.4-5.1); Procalcitonin 0.99 ng/ml (0.0-0.49)
--- NOTE | 2024-07-24 21:29 | PC.NURSE ---
pt requesting nausea and pain meds. TRACY Sandra made aware
[2024-07-24 22:03] LABS: Collection Type, Urine Clean Catch
[2024-07-24 22:18] LABS: Bilirubin,Urine Negative (Negative); Blood,Urine Trace (Negative); Clarity,Urine Clear (Clear/Hazy); Color,Urine Colorless (Lt Yel-Yel); Glucose, Urine 4+ (Negative); Ketones,Urine 3+ (Negative); Leukocyte Esterase,Urine Positive (Negative); Nitrite,Urine Negative (Negative); PH,Urine 5.5 (5.0-7.0); Protein,Urine Trace (Neg - Trace); RBC,Urine 3 /hpf (0-3); Specific Gravity,Urine 1.029 (1.001-1.035); Squamous Epithelial Cell,Urine 1 /hpf (0-5); Urobilinogen,Urine Negative mg/dL (0.0-1.0); WBC,Urine 4 /hpf (0-5)
[2024-07-24] MEDS: MORPHINE SULF INJ 10 MG/ML VIAL 4 MG IVP (22:18)
--- NOTE | 2024-07-24 23:36 | PD.RESHP ---
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 Patient states her symptoms began 1 day prior, at around 5 PM without any inciting factors reported. She estimates she has vomited 50 times total since, has had difficulty eating and drinking since, has consumed mostly water only last 2 days. She does endorse that she had a cough for roughly 1 week prior to the onset of non-bloody vomiting. No prior episodes are reported, patient also denies any unusual dietary changes in recent weeks. Patient endorses compliance to her medications, including Basaglar, Jardiance and sliding scale insulin. Patient also endorses compliance to Eliquis, which was given for a clot that was found during a heart catheterization, as well as levothyroxine. Of note, patient follows oncology for her neuroendocrine tumor treatment, endorses sandostatin treatment every 26 days with last treatment on 07/15/2024. Since starting her neuroendocrine tumor treatment roughly 1 year ago, patient endorses elevation in her glucose recordings, but denies any history of DKA. Patient denies any nausea or vomiting at time of examination, ROS is unremarkable. 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 Review of Systems Review of Systems Narrative Review of Systems: GENERAL: Denies fevers/chills or diaphoresis. HEENT: Denies headache or visual/hearing changes. Denies nasal discharge. NEURO: Denies unusual weakness or difficulty speaking. CARDIO: Denies chest pain or palpitations. PULM: Denies SOB, coughing, or wheezing. GI: Endorsed vomiting prior to examation in ED. Denies abdominal pain, vomiting, diarrhea. URO: Denies burning/itching/pain/urinary changes. 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, insulin-dependent diabetes mellitus type 2, hypothyroidism, and myocardial infarction FH: heart conditions (unclear), Crohn's disease Surgical Hx: Tubal ligation, heart catheterization Social Hx: No tobacco, alcohol, or drug use Travel Hx: No recent travel Exam Vital Signs Temp Pulse Resp BP Pulse Ox O2 Del Method 98.1 F 114 H 20 122/73 99 Room Air 07/24/24 19:50 07/24/24 19:50 07/24/24 19:50 07/24/24 19:50 07/24/24 19:50 07/24/24 19:50 Narrative Exam General: AOx3, cooperative, in no acute distress HEENT: Atraumatic/normocephalic, TRISH, neck supple, oral mucosa appears dry Heart: RRR, S1 and S2 without clicks or murmurs Lungs: Clear on auscultation bilaterally, no difficulty breathing Abdomen: Soft, nontender. Bowel sounds present on all quadrants Skin: Intact, no cyanosis or edema noted. Peripheral pulses palpable Neuro: No focal neurological deficits noted Results: Labs 07/24/24 15:57 07/24/24 15:57 Labs: Short CBC 07/24/24 Range/Units 15:57 WBC 14.5 H (3.6-11.0) Thou/mm3 Hgb 14.4 (12.0-16.0) g/dL Hct 45.3 (36.0-46.0) % Plt Count 274 (140-440) Thou/mm3 BMP 07/24/24 15:57 Sodium 145 Potassium 4.4 Chloride 105 Carbon Dioxide 17.5 L BUN 26 H Creatinine 1.6 H Glucose 393 H Calcium 9.2 Liver Function 07/24/24 Range/Units 15:57 Total Bilirubin 0.4 (0.3-1.2) mg/dL AST 22 (0-34) U/L ALT 23 (10-49) U/L Alkaline Phosphatase 100 (46-116) U/L Albumin 4.4 (3.4-4.8) gm/dL Urine 07/24/24 07/24/24 Range/Units 16:55 21:43 Urine Color Lt-Yellow Colorless A (Lt Yel-Yel) Urine Clarity Clear Clear (Clear/Hazy) Urine pH 5.5 5.5 (5.0-7.0) Ur Specific [place] 1.030 1.029 (1.001-1.035) Urine Protein Trace Trace (Neg - Trace) Urine Glucose (UA) 4+ A 4+ A (Negative) ABG Interpretation ABG results: 07/24/24 20:49 ABG pH 7.20 L ABG pCO2 29 L ABG pO2 100 ABG HCO3 11 L ABG O2 Saturation 98 ABG Base Excess -16 L Quality Measures Quality Measures VTE prophylaxis Medications Home Medications and Allergies Home Medications ?Medication ?Instructions ?Recorded ?Confirmed ?Type apixaban 5 mg tablet (Eliquis) 5 mg PO BID 09/21/23 09/21/23 History Held on 09/21/23. Instructions: Resume on 09/23/23. continue medication on 09/23/23 aspirin 81 mg tablet 81 mg PO QDAY 09/21/23 09/21/23 History Held on 09/21/23. Instructions: Resume on 09/23/23. Continue medication on 09/23/23 cetirizine 10 mg tablet 10 mg PO QDAY 09/21/23 09/21/23 History empagliflozin 25 mg tablet 25 mg PO QDAY 09/21/23 09/21/23 History (Jardiance) insulin glargine 100 unit/mL (3 10 unit subcut QPM 09/21/23 09/21/23 History mL) subcutaneous pen (Basaglar KwikPen U-100 Insulin) levothyroxine 112 mcg tablet 112 mcg PO QDAY 09/21/23 09/21/23 History metoclopramide HCl 5 mg tablet 5 mg PO Q6HR 09/21/23 09/21/23 History pravastatin 40 mg tablet 40 mg PO QDAY 09/21/23 09/21/23 History Allergies Allergy/AdvReac Type Severity Reaction Status Date / Time codeine Allergy Severe VOMITING Verified 07/24/24 14:57 Penicillins Allergy Severe Hives Verified 07/24/24 14:57 Visit Medications Insulin Human Regular (Myxredlin) 100 unit in 100 mls @ 6.35 mls/hr IV .[id number] PRN; Protocol PRN Reason: PER PROTOCOL Stop: 08/23/24 22:32 Discontinued Medications Dextrose (Dextrose 50%-Water Inj 50 Ml Syringe) 50 ml IVP X1 ONE Stop: 07/24/24 22:32 Sodium Chloride (Ns) 1,000 mls @ 999 mls/hr IV .Q1H1M ONE Stop: 07/24/24 16:10 Last Infusion: 07/24/24 16:36 Dose: Infused Lactated Ringer's (Lactated Ringers) 1,000 mls @ 999 mls/hr IV .Q1H1M ONE Stop: 07/24/24 18:49 Last Admin: 07/24/24 17:51 Dose: Not Given Sodium Chloride (Ns) 1,000 mls @ 999 mls/hr IV .Q1H1M ONE Stop: 07/24/24 18:50 Last Infusion: 07/24/24 19:18 Dose: Infused Insulin Human Regular (Insulin Hum Regular 1 Unit/0.01 Ml (Per Unit)) 6.4 unit 0.1 unit/kg (6.4 unit) IV X1 ONE Stop: 07/24/24 22:21 Last Admin: 07/24/24 22:34 Dose: Not Given Morphine Sulfate (Morphine Sulf Inj 10 Mg/Ml Vial) 4 mg IVP X1 ONE Stop: 07/24/24 21:50 Last Admin: 07/24/24 22:18 Dose: 4 mg Ondansetron HCl (Ondansetron Inj 2 Mg/Ml Inj 2 Ml) 4 mg IVP X1 ONE; Protocol Stop: 07/24/24 15:11 Last Admin: 07/24/24 15:42 Dose: 4 mg Ondansetron HCl (Ondansetron Inj 2 Mg/Ml Inj 2 Ml) 4 mg IVP X1 ONE; Protocol Stop: 07/24/24 21:50 Last Admin: 07/24/24 22:16 Dose: 4 mg Assessment & Plan Plan Patient is a 59-year-old female with history of metastatic well-differentiated neuroendocrine tumor, 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 Will be started in IV insulin drip following DKA protocol and admitted to ICU for further management. Neurological ? No active issue Cardiovascular #History of Myocardial infarction #?History of thrombus Patient endorses a history of [place], has had catheterizations done and follows press tender Dr. Guillen in [place], [place] Patient endorses taking Eliquis 5mg BID for a clot that was found on heart cath, location of thrombus unclear Plan ? Continue eliquis 5mg BID Respiratory ? No active issue Gastrointestinal ? No active issue Renal #Acute kidney injury, likely pre-renal Creatinine 1.6 from baseline of ~1.0, in setting of vomiting and poor PO intake Plan: ? Fluid resuscitation as part of DKA protocol ? Trend renal panel Endocrine #Diabetic Ketoacidosis Etiologies include viral infection in last week, home jardiance medication, and neuroendocrine tumor treatment with sandostatin Glucose 393, beta-hydroxybutyrate/acetoacetate 5.9, pH 7.20, PCO2 29, HCO3 11, and ketones in urine at time of admission. A1c 9.9 Plan: ? Begin IV insulin infusion following DKA protocol ? Consider stopping jardiance prior to discharge, replace with alternative diabetic medication ? Follow up with oncology regarding neuroendocrine tumor management #History of Hypothyroidism Plan: ? Resume home levothroxine 112 mcg daily ? Complete med rec pending Infectious Disease ? No active issue, CRP and procal elevation likely related to DKA findings, no clear infectious source at this time requiring antibiotics Hematology/Oncology #History of metastatic well-differentiated neuroendocrine tumor Plan ? Continue outpatient follow up with oncology team ? Patient endorses hyperglycemia readings following sandostatin treatment, advised to follow up with oncology regarding these findings Diet: NPO DVT prophylaxis: home Eliquis 5mg BID GI prophylaxis: None Code status: Limited (no intubations, chest compressions permitted) Disposition: Admitted to ICU for IV insulin drip following DKA protocol. Patient case discussed with attending physician Dr. Deshawn Choi DO PGY-3 Attending Provider Attestation/Addendum I, Amelie Hess DO, attest that I was physically present for the coronado portions of the service and evaluated the patient with the resident and I reviewed and discussed the case with the resident and agree with the resident's findings and plans of care as documented above Patient is a 59-year-old female with past medical history of hypothyroidism, type 2 insulin-dependent diabetes mellitus, ?Ventricular thrombus, neuroendocrine tumor in lung and liver on octreotide who presented to the ED with intractable nausea and vomiting that began at 5pm yesterday. Patient has been unable to tolerate any PO intake due to persistent N/V. She reports some abdominal pain due to recurrent wretching. She states she had a cough that began last week after her grandchildren visited. She also endorsed having subjective fevers. However, CXR is negative and afebrile on presentation. Patient found to have DKA in the ED with metabolic acidosis with bicarb 17.5 and pH of 7.20, anion gap of 23 and ALLISON with creatinine of 1.6. Patient states she uses 15 units of basaglar and 4 units prior to dinner. She also takes jardiance. Patient states she has been taking her medications despite her current symptoms. She states she was diagnosed with type 2 DM about 3 years ago. However, she noted increasing more trouble with controlling BG since starting octreotide for treatment of her neuroendocrine tumors one year ago. BG was 337 on presentation. Will admit patient to ICU for DKA and start on insulin drip. Will check BMP q4h. On exam, patient appears to be dry with dry oral mucosa. She remains tachycardic. Lungs are CTAB/L. Abdomen is soft, nondistended and nontender. Patient is A&Ox3. No skin lesions or breaks in skin noted.
[2024-07-24 23:49] LABS: Reflex Lactate? Y
[2024-07-24] MEDS: RINGERS LACTATED 1000 ML 1,000 ML 250 ML IV (23:56)
[2024-07-24] MEDS: INSULIN REG 100 UNITS/100 ML 100 UNIT/100 ML BAG 6.35 UNIT IV (23:57)
[2024-07-25] VITALS (149 sets, daily range): BP systolic 84–108; BP diastolic 52–67; PULSE 69–109; RESP 9–96; TEMP 36.1–37.2; O2SAT 92–100; BMI 20.5; BMI 21.4
[2024-07-25 00:05] LABS: Lactic Acid, 3 HR 1.7 mMol/L (0.4-2.0)
[2024-07-25 00:28] LABS: Albumin, Serum 4.3 gm/dL (3.4-4.8); Anion Gap 25 (7-16); BUN/Creatinine Ratio 20 Ratio (12-20); Blood Urea Nitrogen 30 mg/dL (9-23); Calcium 9.1 mg/dL (8.3-10.6); Calcium (Corrected) 9.1 mg/dL (8.5-10.1); Chloride 111 mMol/L (98-107); Creatinine (Component) 1.5 mg/dL (0.6-1.3); Glucose 353 mg/dL (74-106); Magnesium 2.4 mg/dL (1.6-2.6); Osmolality,Calculated 312 (275-295); Phosphorous 4.6 mg/dL (2.4-5.1); Potassium 4.8 mMol/L (3.4-5.1); Sodium 147 mMol/L (136-145); eGFR 40 See Note
[2024-07-25 00:34] LABS: Carbon Dioxide 11.1 mMol/L (20.0-31.0)
[2024-07-25] MEDS: POTASSIUM CHL 10 mEq IVPB 10 MEQ/100 ML BAG 50 MEQ IV ×3 (01:32→05:38)
[2024-07-25] MEDS: DEXTROSE 5%-LACTATED RINGERS 1,000 ML 250 ML IV (03:10)
[2024-07-25 04:51] LABS: Lactate (Lactic Acid) 1.6 mMol/L (0.4-2.0)
[2024-07-25 05:39] LABS: Albumin, Serum 3.6 gm/dL (3.4-4.8); Anion Gap 15 (7-16); BUN/Creatinine Ratio 22 Ratio (12-20); Blood Urea Nitrogen 28 mg/dL (9-23); Calcium 8.6 mg/dL (8.3-10.6); Calcium (Corrected) 8.9 mg/dL (8.5-10.1); Carbon Dioxide 17.8 mMol/L (20.0-31.0); Chloride 113 mMol/L (98-107); Creatinine (Component) 1.3 mg/dL (0.6-1.3); Estimated Creatinine Clearance 43.3 mL/min (>60); Glucose 202 mg/dL (74-106); Osmolality,Calculated 302 (275-295); Phosphorous 2.6 mg/dL (2.4-5.1); Sodium 146 mMol/L (136-145); eGFR 47 See Note
[2024-07-25] MEDS: LEVOTHYROXINE SODIUM 100 MCG TABLET 150 MCG PO (06:05)
--- NOTE | 2024-07-25 08:10 | ESPR_ITS ---
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 Patient states her symptoms began 1 day prior, at around 5 PM without any inciting factors reported. She estimates she has vomited 50 times total since, has had difficulty eating and drinking since, has consumed mostly water only last 2 days. She does endorse that she had a cough for roughly 1 week prior to the onset of non-bloody vomiting. No prior episodes are reported, patient also denies any unusual dietary changes in recent weeks. Patient endorses compliance to her medications, including Basaglar, Jardiance and sliding scale insulin. Patient also endorses compliance to Eliquis, which was given for a clot that was found during a heart catheterization, as well as levothyroxine. Of note, patient follows oncology for her neuroendocrine tumor treatment, endorses sandostatin treatment every 26 days with last treatment on 07/15/2024. Since starting her neuroendocrine tumor treatment roughly 1 year ago, patient endorses elevation in her glucose recordings, but denies any history of DKA. Patient denies any nausea or vomiting at time of examination, ROS is unremarkable. Significant labs: WBC 14.5, bicarb 17.5, anion gap 23, BUN 26, creatinine 1.6, EGFR 37, glucose 393, A1c 9.9, lactic acid 3.0, CRP 3.2, beta hydroxybutyrate/acetoacetate 5.9, procalcitonin 0.99 ABG: pH 7.20, [id number], PO2 100, HCO3 11 UA: 4+ glucose, 3+ ketones, positive leukocyte esterase Chest x-ray: No active disease Patient found to have labs consistent with DKA, will be started in IV insulin drip following DKA protocol and admitted to the ICU for further management. 07/25/2024: Overnight patient's anion gap closed once, now 15. Patient is tolerating clear liquids no complaints of nausea. WBC increased to 14.6 from 14.5, Hb decreased to 11.7 from 14.4, anion gap improved to 9 from 25, bicarb improved to 17.8 from 11.1, LA improved to 1.6 from 3, creatinine improved to 1.3 from 1.6. MRSA nares, urine and blood cultures pending. Over the past 6 hours patient required 34 units of insulin, insulin glargine 20 units SC x 1, insulin lispro units 3 times daily with meals. Will stop insulin infusion 2 hours after SC insulin. Started patient on low consistent carb diet. Requested medical records from manufacturing technician, Dr. Guillen. Patient is now clinically stable, once insulin infusion is discontinued will downgrade to the floor. Exam Vital Signs Temp Pulse Resp BP Pulse Ox O2 Del Method 99 F 86 12 96/56 L 98 Room Air 07/25/24 04:00 07/25/24 06:00 07/25/24 06:00 07/25/24 06:00 07/25/24 06:00 07/25/24 04:00 Narrative Exam Constitutional Alert, oriented x 3 and comfortable. Elderly female HEENT Vision grossly intact. Patent nares. Trachea midline Respiratory Chest normal on inspection and clear auscultation bilaterally on anterior and posterior chest wall. Cardiovascular S1 and S2 audible, RRR. No murmurs carotid bruit. JVD not assessed Abdominal Soft and non tender to palpation in all quadrants. BS + Genitourinary No bladder tenderness, no flank pain. Normal to palpation Musculoskeletal Extremities tone within normal limits. No LE edema. CGM on right lateral thigh Neurological CN II - XII grossly intact. Extremity motor and sensation grossly intact. Skin Warm, dry and intact. Fingernails and toenails dry and cracked Psychiatric Patient has good affect, is cooperative Objective Labs 07/25/24 04:25 07/25/24 08:00 Labs: Laboratory Results - last 24 hr 07/24/24 07/24/24 07/24/24 15:57 16:55 20:41 WBC 14.5 H RBC 4.50 Hgb 14.4 Hct 45.3 MCV 101 H MCH 32.0 MCHC 31.8 RDW Std Deviation 48.1 H Plt Count 274 Neut % (Auto) 86 H Lymph % (Auto) 8 L [place] % (Auto) 4 Eos % (Auto) 0 Baso % (Auto) 0 Neut # (Auto) 12.6 H Lymph # (Auto) 1.2 [place] # (Auto) 0.6 Eos # (Auto) 0.0 Baso # (Auto) 0.0 Immature Gran # (Auto) 0.16 H Absolute Nucleated RBC 0.00 Immature Gran % 1 H Nucleated RBC % 0 Puncture Site ABG pH ABG pCO2 ABG pO2 ABG HCO3 ABG O2 Saturation ABG Base Excess FiO2 Sodium 145 Potassium 4.4 Chloride 105 Carbon Dioxide 17.5 L Anion Gap 23 H BUN 26 H Creatinine 1.6 H Estim Creat Clear Calc Not Performed. eGFR 37 L BUN/Creatinine Ratio [address] Glu mg/dL 237 H Hemoglobin A1c 9.9 H Calculated Osmolality 309 H Lactic Acid 3.0 H Calcium 9.2 Corrected Calcium 9.2 Phosphorus 4.9 Magnesium 2.3 Total Bilirubin 0.4 AST 22 ALT 23 Alkaline Phosphatase 100 C-Reactive Prot, Quant 3.2 H Total Protein 7.1 Albumin 4.4 Globulin 2.7 Albumin/Globulin Ratio 1.6 Lipase 24 Beta-Hydroxybutyrate/Acetoacetate 5.9 H Procalcitonin 0.99 H Ur Collection Type Clean Catch Urine Color Lt-Yellow Urine Clarity Clear Urine pH 5.5 Ur Specific [place] 1.030 Urine Protein Trace Urine Glucose (UA) 4+ A Urine Ketones 2+ A Urine Blood Trace Urine Nitrite Negative Urine Bilirubin Negative Urine Urobilinogen (Auto) Negative Ur Leukocyte Esterase Positive Urine RBC 3 Urine WBC 6 H Ur Squamous Epith Cells 1 Urine Bacteria None Ur Culture Indicated? Not Indicated 07/24/24 07/24/24 07/24/24 20:49 21:43 23:50 WBC RBC Hgb Hct MCV MCH MCHC RDW Std Deviation Plt Count Neut % (Auto) Lymph % (Auto) [place] % (Auto) Eos % (Auto) Baso % (Auto) Neut # (Auto) Lymph # (Auto) [place] # (Auto) Eos # (Auto) Baso # (Auto) Immature Gran # (Auto) Absolute Nucleated RBC Immature Gran % Nucleated RBC % Puncture Site Right Radial ABG pH 7.20 L ABG pCO2 29 L ABG pO2 100 ABG HCO3 11 L ABG O2 Saturation 98 ABG Base Excess -16 L FiO2 21 Sodium 147 H Potassium 4.8 Chloride 111 H Carbon Dioxide 11.1 L* Anion Gap 25 H BUN 30 H Creatinine 1.5 H Estim Creat Clear Calc Not Performed. eGFR 40 L BUN/Creatinine Ratio [address]ucose [address] Glu mg/dL Hemoglobin A1c Calculated Osmolality 312 H Lactic Acid 1.7 Calcium 9.1 Corrected Calcium 9.1 Phosphorus 4.6 Magnesium 2.4 Total Bilirubin AST ALT Alkaline Phosphatase C-Reactive Prot, Quant Total Protein Albumin 4.3 Globulin Albumin/Globulin Ratio Lipase Beta-Hydroxybutyrate/Acetoacetate Procalcitonin Ur Collection Type Clean Catch Urine Color Colorless A Urine Clarity Clear Urine pH 5.5 Ur Specific [place] 1.029 Urine Protein Trace Urine Glucose (UA) 4+ A Urine Ketones 3+ A Urine Blood Trace Urine Nitrite Negative Urine Bilirubin Negative Urine Urobilinogen (Auto) Negative Ur Leukocyte Esterase Positive Urine RBC 3 Urine WBC 4 Ur Squamous Epith Cells 1 Urine Bacteria None Ur Culture Indicated? 07/25/24 04:25 WBC RBC Hgb Hct MCV MCH MCHC RDW Std Deviation Plt Count Neut % (Auto) Lymph % (Auto) [place] % (Auto) Eos % (Auto) Baso % (Auto) Neut # (Auto) Lymph # (Auto) [place] # (Auto) Eos # (Auto) Baso # (Auto) Immature Gran # (Auto) Absolute Nucleated RBC Immature Gran % Nucleated RBC % Puncture Site ABG pH ABG pCO2 ABG pO2 ABG HCO3 ABG O2 Saturation ABG Base Excess FiO2 Sodium 146 H Potassium 5.0 Chloride 113 H Carbon Dioxide 17.8 L Anion Gap 15 BUN 28 H Creatinine 1.3 Estim Creat Clear Calc 43.3 L eGFR 47 L BUN/Creatinine Ratio 22 H Glucose [address] Glu mg/dL Hemoglobin A1c Calculated Osmolality 302 H Lactic Acid 1.6 Calcium 8.6 Corrected Calcium 8.9 Phosphorus 2.6 Magnesium 2.0 Total Bilirubin AST ALT Alkaline Phosphatase C-Reactive Prot, Quant Total Protein Albumin 3.6 D Globulin Albumin/Globulin Ratio Lipase Beta-Hydroxybutyrate/Acetoacetate Procalcitonin Ur Collection Type Urine Color Urine Clarity Urine pH Ur Specific [place] Urine Protein Urine Glucose (UA) Urine Ketones Urine Blood Urine Nitrite Urine Bilirubin Urine Urobilinogen (Auto) Ur Leukocyte Esterase Urine RBC Urine WBC Ur Squamous Epith Cells Urine Bacteria Ur Culture Indicated? ABG Interpretation ABG results: 07/24/24 20:49 ABG pH 7.20 L ABG pCO2 29 L ABG pO2 100 ABG HCO3 11 L ABG O2 Saturation 98 ABG Base Excess -16 L Quality Measures Quality Measures VTE prophylaxis Assessment & Plan Assessment Current Active Medications: Generic Name Dose Route Start Last Admin Trade Name Freq PRN Reason Stop Dose Admin Acetaminophen 650 mg 07/24/24 23:23 Acetaminophen 325 Mg Tablet PO 08/23/24 23:22 Q6H PRN Fever >101.5 or pain (1-3) Apixaban 5 mg 07/25/24 09:00 Apixaban 2.5 Mg Tablet PO 08/24/24 08:59 BID ROLA Dextrose 25 ml 07/24/24 23:28 Dextrose 50%-Water Inj 50 Ml Syringe IV [id number] PRN Blood Sugar - Low Insulin Human Regular 100 unit in 100 mls @ 6.35 mls/hr 07/24/24 22:33 07/25/24 06:00 Myxredlin IV 08/23/24 22:32 0.05 unit/kg/hr .[id number] PRN 3.175 mls/hr PER PROTOCOL Titration Protocol 0.1 UNIT/KG/HR Potassium Chloride 10 meq in 100 mls @ 100 mls/hr 07/24/24 23:28 Kcl Ivpb IV 08/23/24 23:27 .Q1H PRN IF POTASSIUM LESS THAN 3.3 Magnesium Sulfate 2 gm in 50 mls @ 25 mls/hr 07/24/24 23:28 Magnesium Sulfate Ivpb IV 08/23/24 23:27 .Q2H PRN PER DKA PROTOCOL Dextrose/Lactated Ringer's 1,000 mls @ 250 mls/hr 07/24/24 23:28 07/25/24 03:10 D5-Lr IV 08/23/24 23:27 250 mls/hr .Q4H PRN Administration PER PROTOCOL Lactated Ringer's 1,000 mls @ 250 mls/hr 07/24/24 23:28 07/25/24 03:00 Lactated Ringers IV 07/25/24 23:27 0 mls/hr .Q4H PRN Infusion PER PROTOCOL Potassium Chloride 20 meq/ 1,010 mls @ 250 mls/hr 07/24/24 23:28 Lactated Ringer's IV 08/23/24 23:27 .Q4H3M PRN K LEVEL 3.3 TO 5.3mM/L Potassium Chloride 40 meq/ 1,020 mls @ 250 mls/hr 07/24/24 23:28 Lactated Ringer's IV 08/23/24 23:27 .Q4H5M PRN K LEVEL < 3.3 mM/L Potassium Chloride 40 meq/ 1,020 mls @ 250 mls/hr 07/24/24 23:28 Dextrose/Lactated Ringer's IV 08/23/24 23:27 .Q4H5M PRN K LEVEL < 3.3mM/L Potassium Chloride 10 meq in 100 mls @ 50 mls/hr 07/24/24 23:28 07/25/24 05:38 Kcl Ivpb IV 08/23/24 23:27 50 mls/hr PRN PRN Administration K LEVEL 3.3 to 5.3 & BG > 200 Potassium Phosphate 15 mmol in 250 mls @ 62.5 mls/hr 07/24/24 23:28 Pot Phos 15 Mmol In Ns 250 Ml IV 08/23/24 23:27 PRN PRN Phosphate <= 1mg/dL Sodium Phosphate 15 mmol/ 255 mls @ 62.5 mls/hr 07/24/24 23:28 Sodium Chloride IV 08/23/24 23:27 .Q4H5M PRN Phosphate <= 1mg/dL and K> than 5.3 Potassium Chloride 20 meq/ 1,010 mls @ 252.5 mls/hr 07/25/24 07:45 Dextrose/Lactated Ringer's IV 08/24/24 07:44 .Q4H PRN K level 3.3 to 5.3 mM/L Levothyroxine Sodium 150 mcg 07/25/24 06:00 07/25/24 06:05 Levothyroxine Sodium 100 Mcg Tablet PO 08/24/24 05:59 150 mcg ACBR ROLA Administration Ondansetron HCl 4 mg 07/24/24 23:23 Ondansetron Inj 2 Mg/Ml Inj 2 Ml IVP 08/23/24 23:22 Q6H PRN NAUSEA OR VOMITING Protocol Sennosides 1 tab 07/24/24 23:23 Senna Tablet PO 08/23/24 23:22 QDAY PRN constipation Protocol Sodium Bicarbonate 50 ml 07/24/24 23:28 Sodium Bicarb Inj 8.4% Syr 50 Ml Syringe IV 08/23/24 23:27 Q4HR PRN For ph <= to 7.0 Plan Patient is a 59-year-old female with history of metastatic well-differentiated neuroendocrine tumor, 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 Will be started in IV insulin drip following DKA protocol and admitted to ICU for further management. Neurological ? No active issue Cardiovascular History of Myocardial infarction - April 2023 ?History of thrombus Patient endorses a history of [place], has had catheterizations done and follows manufacturing technician Dr. Guillen in [place], [place] Patient endorses taking Eliquis 5mg BID for a clot that was found on heart cath, location of thrombus unclear Plan: ?Continue eliquis 5mg BID - Requested records from manufacturing technician Respiratory ? No active issue Gastrointestinal ? No active issue Renal Moderate Diabetic Ketoacidosis - RESOLVED Etiologies include viral infection in last week, home jardiance medication, and neuroendocrine tumor treatment with sandostatin anion gap improved to 9 from 25, bicarb improved to 17.8 from 11.1, LA improved to 1.6 from 3 Plan: - Insulin glargine 20 units SC x 1, insulin lispro units 3 times daily with meals. Will stop insulin infusion 2 hours after SC insulin. Started patient on low consistent carb diet. - Downgrade to the floor after insulin infusion discontinued Acute kidney injury, likely pre-renal - resolving Etiology : vomiting, volume depletion Dx: Cr - 1.6 --> 1.3 Plan: ? Continue fluid resusitation Endocrine Insulin-dependent diabetes mellitus type 2 [9.9] Patient on Basaglar 15 units at bedtime, Premeal insulin lispro at night only. Jardiance Patient says that her Dexcom CGMS currently nonfunctional Plan: ? Will adjust patient's insulin prior to discharge - Dietitian referral for CGM sample History of Hypothyroidism Plan: ? Continue home levothroxine 112 mcg daily Infectious Disease ? No active issue, CRP and procal elevation likely related to DKA findings, no clear infectious source at this time requiring antibiotics Hematology/Oncology History of metastatic well-differentiated neuroendocrine tumor Plan ? Continue outpatient follow up with oncology team ICU Health maintenance: Dispo: Downgrade to floor after insulin infusion is discontinued Diet: Consistent Carb Low DVT ppx: Apixaban 5mg po bid GI ppx: None Mechanical ventilattion: NO Sedation: NO IV lines: 2 pIV B/L forearms Central line: No Arterial line: No Reeves: Yes NO Code status: FULL CODE Plan of care discussed with Attending Dr. Dexter and PGY 3 Dr. Sophie Holder MD PGY 1 Disclaimer: This note was dictated by speech recognition. Minor errors in transcriptionist may be present due to voice recognition software. Attending Provider Attestation/Addendum Patient seen and examined. In brief this is a 59-year-old female admitted for DKA. Patient states that she was started on injected octreotide monthly in November for her neuroendocrine tumor and since then her blood sugars have been uncontrolled. She takes Lantus in the evening and she takes short acting insulin before dinner. States that she only eats twice a day but does not take any insulin before breakfast. She notes when she wakes up her blood sugars usually well-controlled below 120 however increases throughout the day. Currently she states she feels much better than on arrival however still not back to baseline. Her last follow up with oncology in the system was June of this year and she is staged as stage IV neuroendocrine tumor. Currently since her gap is closed we will start subq insulin and transition off insulin gtt. case d/w ICU team labs, imaging, records reviewed ~38min required for eval, exam, review, intervention, discussion and formulation of POC for this pt
[2024-07-25] MEDS: POT CHL ADDITIVE 20 MEQ in DEXTROSE 5%-LACTATED RINGERS 1,000 ML 252.5 MEQ IV (08:15)
[2024-07-25] MEDS: APIXABAN 2.5 MG TABLET 5 MG PO ×2 (08:17→20:13)
[2024-07-25 08:25] LABS: Lactate (Lactic Acid) 1.3 mMol/L (0.4-2.0)
--- NOTE | 2024-07-25 08:45 | PC.NURSE ---
FAXED RECORDS REQUEST TO DR. ROBLES OFFICE AT [id number] TO FAX NUMBER [phone]
[2024-07-25 08:52] LABS: Albumin, Serum 3.6 gm/dL (3.4-4.8); Anion Gap 9 (7-16); BUN/Creatinine Ratio 19 Ratio (12-20); Blood Urea Nitrogen 26 mg/dL (9-23); Calcium 8.8 mg/dL (8.3-10.6); Calcium (Corrected) 9.1 mg/dL (8.5-10.1); Carbon Dioxide 24.9 mMol/L (20.0-31.0); Chloride 111 mMol/L (98-107); Creatinine (Component) 1.4 mg/dL (0.6-1.3); Estimated Creatinine Clearance 41.6 mL/min (>60); Glucose 157 mg/dL (74-106); Magnesium 1.9 mg/dL (1.6-2.6); Osmolality,Calculated 296 (275-295); Sodium 145 mMol/L (136-145); eGFR 43 See Note
[2024-07-25 09:36] LABS: Basophils # (Auto) 0.1 Thou/mm3 (0.0-0.2); Basophils % (Auto) 0 % (0-2.5); Eosinophils % (Auto) 0 % (0-10); Hematocrit 34.7 % (36.0-46.0); Hemoglobin 11.7 g/dL (12.0-16.0); Immature Granulocytes % (Auto) 1 % (0-0); Immature Granulocytes Auto 0.19 Thou/mm3 (0.00-0.00); Lymphocytes # (Auto) 1.6 Thou/mm3 (1.0-4.8); Lymphocytes % (Auto) 11 % (10-50); Mean Corpuscular HGB Conc 33.7 g/dl (31.0-37.0); Mean Corpuscular Hemoglobin 32.1 pg (25.0-35.0); Mean Corpuscular Volume 95 fL (80-100); Monocytes # (Auto) 1.7 Thou/mm3 (0.0-0.8); Monocytes % (Auto) 12 % (0-12); Neutrophils % (Auto) 75 % (37-80); Nucleated Red Blood Cell % 0 /100 WBC (0); Platelet Count 243 Thou/mm3 (140-440); RDW Standard Deviation 46.4 fL (36.4-46.3); Red Blood Count 3.65 Miln/mm3 (4.00-5.20); White Blood Count 14.6 Thou/mm3 (3.6-11.0)
[2024-07-25] MEDS: INSULIN GLARGINE (Lantus) 5 UNIT/0.05 ML (PER 5 UNITS) 20 UNIT SC ×2 (10:17→20:13)
--- NOTE | 2024-07-25 12:52 | PC.SS ---
PACKER conducted bedside contact with the patient conduct initial assessment and to discuss discharge planning.? Patient confirmed demographic information.? Patient resides on same property as daughter, Radha Espinal.? Patient does not utilize DME to assist with ambulation.? Patient does not utilize home oxygen.? Patient describes the ability to complete ADL?s independently.? Patient identified daughter, Radha Espinal ; as surrogate medical decision maker.? Patient?s PCP is VANDA Bryant.? Patient?s oncologist is Dr. Escamilla [facility].? History of metastatic neuroendocrine tumor. ?Patient?s rn angiography is Eileen Lynch.? Patient possesses a history diabetes.? Patient does not participate with dialysis.? Patient utilizes [facility] for medication services.? Plan is for the patient to return home at the time of discharge. ?Family will provide transportation on behalf of the patient. ?No further discharge needs identified by the patient.? No further intervention required at this time, geriatric social work professor will be available to address any further concerns.? Next of Kin: Radha Espinal D/C Plan: Home
--- NOTE | 2024-07-25 16:13 | ESPR_ITS ---
<Statement entered by Robby Nielson MD - 07/25/24 21:52> I discussed with and supervised the internship coordinator physician involved in the care of this patient. Patient assessment and plan was discussed with entire medicine team, including my attending. I agree with the assessment and plan as documented by internship coordinator doctor. Patient care was discussed with my attending physician Dr.Tingle Robby Nielson, PGY-2 Documentation for date of: 07/25/24 Subjective Subjective Interval history: Patient was seen and examined by the bedside. Patient reports feeling better than yesterday, denies nausea, vomiting, diarrhea, shortness of breath. Patient is tolerating oral diet, transitioned to the insulin sc. Exam Vital Signs Temp Pulse Resp BP Pulse Ox O2 Del Method 97.5 F 84 17 98/57 L 97 Room Air 07/25/24 14:00 07/25/24 14:00 07/25/24 14:00 07/25/24 14:00 07/25/24 14:07/25/24 14:00 Narrative Exam Physical Exam General: Awake and in no acute distress. Conversational and non-toxic appearing. HEENT: Normocephalic, atraumatic, mucous membranes moist. Heart: Regular rate and rhythm, no murmurs. Lungs: Clear to auscultation with no wheezing or crackles. Abdomen: Soft, nondistended, nontender, positive bowel sounds. ?No guarding or rebound tenderness. Neurologic: Alert and oriented x3, no gross neurological deficit, and patient able to move all 4 extremities. Extremities: No edema. Skin: No rash or ecchymoses. Objective Labs 07/27/24 04:27 07/27/24 04:27 Labs: Laboratory Results - last 24 hr 07/24/24 07/24/24 07/24/24 15:57 16:55 20:41 WBC 14.5 H RBC 4.50 Hgb 14.4 Hct 45.3 MCV 101 H MCH 32.0 MCHC 31.8 RDW Std Deviation 48.1 H Plt Count 274 Neut % (Auto) 86 H Lymph % (Auto) 8 L [place] % (Auto) 4 Eos % (Auto) 0 Baso % (Auto) 0 Neut # (Auto) 12.6 H Lymph # (Auto) 1.2 [place] # (Auto) 0.6 Eos # (Auto) 0.0 Baso # (Auto) 0.0 Immature Gran # (Auto) 0.16 H Absolute Nucleated RBC 0.00 Immature Gran % 1 H Nucleated RBC % 0 Puncture Site ABG pH ABG pCO2 ABG pO2 ABG HCO3 ABG O2 Saturation ABG Base Excess FiO2 Sodium 145 Potassium 4.4 Chloride 105 Carbon Dioxide 17.5 L Anion Gap 23 H BUN 26 H Creatinine 1.6 H Estim Creat Clear Calc Not Performed. eGFR 37 L BUN/Creatinine Ratio [address] Glu mg/dL 237 H Hemoglobin A1c 9.9 H Calculated Osmolality 309 H Lactic Acid 3.0 H Calcium 9.2 Corrected Calcium 9.2 Phosphorus 4.9 Magnesium 2.3 Total Bilirubin 0.4 AST 22 ALT 23 Alkaline Phosphatase 100 C-Reactive Prot, Quant 3.2 H Total Protein 7.1 Albumin 4.4 Globulin 2.7 Albumin/Globulin Ratio 1.6 Lipase 24 Beta-Hydroxybutyrate/Acetoacetate 5.9 H Procalcitonin 0.99 H Ur Collection Type Clean Catch Urine Color Lt-Yellow Urine Clarity Clear Urine pH 5.5 Ur Specific [place] 1.030 Urine Protein Trace Urine Glucose (UA) 4+ A Urine Ketones 2+ A Urine Blood Trace Urine Nitrite Negative Urine Bilirubin Negative Urine Urobilinogen (Auto) Negative Ur Leukocyte Esterase Positive Urine RBC 3 Urine WBC 6 H Ur Squamous Epith Cells 1 Urine Bacteria None Ur Culture Indicated? Not Indicated 07/24/24 07/24/24 07/24/24 20:49 21:43 23:50 WBC RBC Hgb Hct MCV MCH MCHC RDW Std Deviation Plt Count Neut % (Auto) Lymph % (Auto) [place] % (Auto) Eos % (Auto) Baso % (Auto) Neut # (Auto) Lymph # (Auto) [place] # (Auto) Eos # (Auto) Baso # (Auto) Immature Gran # (Auto) Absolute Nucleated RBC Immature Gran % Nucleated RBC % Puncture Site Right Radial ABG pH 7.20 L ABG pCO2 29 L ABG pO2 100 ABG HCO3 11 L ABG O2 Saturation 98 ABG Base Excess -16 L FiO2 21 Sodium 147 H Potassium 4.8 Chloride 111 H Carbon Dioxide 11.1 L* Anion Gap 25 H BUN 30 H Creatinine 1.5 H Estim Creat Clear Calc Not Performed. eGFR 40 L BUN/Creatinine Ratio [address]ucose [address] Glu mg/dL Hemoglobin A1c Calculated Osmolality 312 H Lactic Acid 1.7 Calcium 9.1 Corrected Calcium 9.1 Phosphorus 4.6 Magnesium 2.4 Total Bilirubin AST ALT Alkaline Phosphatase C-Reactive Prot, Quant Total Protein Albumin 4.3 Globulin Albumin/Globulin Ratio Lipase Beta-Hydroxybutyrate/Acetoacetate Procalcitonin Ur Collection Type Clean Catch Urine Color Colorless A Urine Clarity Clear Urine pH 5.5 Ur Specific [place] 1.029 Urine Protein Trace Urine Glucose (UA) 4+ A Urine Ketones 3+ A Urine Blood Trace Urine Nitrite Negative Urine Bilirubin Negative Urine Urobilinogen (Auto) Negative Ur Leukocyte Esterase Positive Urine RBC 3 Urine WBC 4 Ur Squamous Epith Cells 1 Urine Bacteria None Ur Culture Indicated? 07/25/24 07/25/24 04:25 08:00 WBC 14.6 H RBC 3.65 L Hgb 11.7 L D Hct 34.7 L D MCV 95 MCH 32.1 MCHC 33.7 RDW Std Deviation 46.4 H Plt Count 243 D Neut % (Auto) 75 Lymph % (Auto) 11 [place] % (Auto) 12 Eos % (Auto) 0 Baso % (Auto) 0 Neut # (Auto) 11.0 H Lymph # (Auto) 1.6 [place] # (Auto) 1.7 H Eos # (Auto) 0.0 Baso # (Auto) 0.1 Immature Gran # (Auto) 0.19 H Absolute Nucleated RBC 0.00 Immature Gran % 1 H Nucleated RBC % 0 Puncture Site ABG pH ABG pCO2 ABG pO2 ABG HCO3 ABG O2 Saturation ABG Base Excess FiO2 Sodium 146 H 145 Potassium 5.0 5.0 Chloride 113 H 111 H Carbon Dioxide 17.8 L 24.9 Anion Gap 15 9 BUN 28 H 26 H Creatinine 1.3 1.4 H Estim Creat Clear Calc 43.3 L 41.6 L eGFR 47 L 43 L BUN/Creatinine Ratio 22 H 19 Glucose 202 H D [address] Glu mg/dL Hemoglobin A1c Calculated Osmolality 302 H 296 H Lactic Acid 1.6 1.3 Calcium 8.6 8.8 Corrected Calcium 8.9 9.1 Phosphorus 2.6 2.0 L Magnesium 2.0 1.9 Total Bilirubin AST ALT Alkaline Phosphatase C-Reactive Prot, Quant Total Protein Albumin 3.6 D 3.6 Globulin Albumin/Globulin Ratio Lipase Beta-Hydroxybutyrate/Acetoacetate Procalcitonin Ur Collection Type Urine Color Urine Clarity Urine pH Ur Specific [place] Urine Protein Urine Glucose (UA) Urine Ketones Urine Blood Urine Nitrite Urine Bilirubin Urine Urobilinogen (Auto) Ur Leukocyte Esterase Urine RBC Urine WBC Ur Squamous Epith Cells Urine Bacteria Ur Culture Indicated? ABG Interpretation ABG results: 07/24/24 20:49 ABG pH 7.20 L ABG pCO2 29 L ABG pO2 100 ABG HCO3 11 L ABG O2 Saturation 98 ABG Base Excess -16 L Quality Measures Quality Measures VTE prophylaxis Assessment & Plan Assessment Current Active Medications: Generic Name Dose Route Start Last Admin Trade Name Freq PRN Reason Stop Dose Admin Acetaminophen 650 mg 07/24/24 23:23 Acetaminophen 325 Mg Tablet PO 08/23/24 23:22 Q6H PRN Fever >101.5 or pain (1-3) Apixaban 5 mg 07/25/24 09:00 07/25/24 08:17 Apixaban 2.5 Mg Tablet PO 08/24/24 08:59 5 mg BID ROLA Administration Glucagon 1 mg 07/25/24 09:52 Glucagon Inj 1 Mg Vial IM Q15MIN PRN BG <70, and no IV access Insulin Human Lispro 3 unit 07/25/24 12:00 07/25/24 11:42 Insulin Lispro (Admelog) 1 Unit/0.01 Ml Unit SC 08/24/24 11:59 Not Given TIDWM ROLA Insulin Human Lispro 0 unit 07/25/24 11:30 07/25/24 11:42 Insulin Lispro (Admelog) 1 Unit/0.01 Ml Unit SC 08/24/24 11:29 Not Given AC ROLA Protocol Levothyroxine Sodium 150 mcg 07/25/24 06:00 07/25/24 06:05 Levothyroxine Sodium 100 Mcg Tablet PO 08/24/24 05:59 150 mcg ACBR ROLA Administration Ondansetron HCl 4 mg 07/24/24 23:23 Ondansetron Inj 2 Mg/Ml Inj 2 Ml IVP 08/23/24 23:22 Q6H PRN NAUSEA OR VOMITING Protocol Sennosides 1 tab 07/24/24 23:23 Senna Tablet PO 08/23/24 23:22 QDAY PRN constipation Protocol Plan Patient is a 59-year-old female with history of metastatic well-differentiated neuroendocrine tumor, 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 She was downgraded to the floors from ICU on 07/25/24. #Insulin-dependent diabetes mellitus type 2 #DKA, resolved HbA1c 9.9% Patient on Basaglar 15 units at bedtime, Premeal insulin lispro at night only. Jardiance Patient says that her Dexcom CGMS currently nonfunctional Plan: ? ISS, hypoglycemia protocol - Glargine 20 U HS - Lispro 3u TID with meals - Dietitian referral for CGM sample #History of Myocardial infarction - April 2023 #?History of intracardiac thrombus Patient endorses a history of [place], has had catheterizations done and follows denture processor Dr. Guillen in [place], [place] Patient endorses taking Eliquis 5mg BID for a clot that was found on heart cath, location of thrombus unclear Plan: ?Continue eliquis 5mg BID - Requested records from denture processor #Acute kidney injury, likely pre-renal - resolving Due to vomiting, volume depletion Plan: ? Continue fluid resusitation #Hypothyroidism Plan: ? Continue home levothroxine 112 mcg daily #Metastatic well-differentiated neuroendocrine tumor Patient is on sandostatin. Plan ? Continue outpatient follow up with oncology Health maintenance: Dispo: medtele Diet: Consistent Carb Low DVT ppx: Apixaban 5mg po bid GI ppx: None Code status: FULL CODE Plan of care discussed with attending Dr. Vazquez, PGY-[address] Nielson. Ying Colmenares MD, PGY 1. Attending Provider Attestation/Addendum I have discussed and was present for the essential components of the history, physical examination, diagnosis, and treatment plan with the resident. I agree with the patient's care as documented by the resident and amended herein by me. Gerhard Vazquez DO. Although this document has been carefully reviewed, there may still be some phonetic and other typographical errors. These errors are purely grammatical due to imperfections in the software program and should not be construed in any way to compromise the substance of the patient's medical care during this visit.
[2024-07-25] MEDS: POLYETHYLENE GLYCOL 17 GM PACKET PO (20:13)
[2024-07-26] VITALS (9 sets, daily range): BP systolic 89–109; BP diastolic 55–70; PULSE 65–80; RESP 15–18; TEMP 36.1–36.7; O2SAT 95–98
[2024-07-26] MEDS: ACETAMINOPHEN 325 MG TABLET 650 MG PO (01:19)
[2024-07-26] MEDS: RINGERS LACTATED 1000 ML 500 ML 999 ML IV (01:25)
--- NOTE | 2024-07-26 01:37 | PC.NURSE ---
called Dr. Leonardo Saucedo regarding patient's BP of 89/59, MAP of 67, based on patient's BP trend has been on the lower side SBP in the 90s, HR in the 70s sinus rhythm. Ne orders received of 500mL LR IV bolus.
[2024-07-26] MEDS: RINGERS LACTATED 1000 ML 500 ML 55 ML IV (03:15)
[2024-07-26 05:54] LABS: Basophils % (Auto) 0 % (0-2.5); Eosinophils # (Auto) 0.1 Thou/mm3 (0.0-0.5); Eosinophils % (Auto) 1 % (0-10); Hematocrit 32.1 % (36.0-46.0); Hemoglobin 10.8 g/dL (12.0-16.0); Immature Granulocytes % (Auto) 0 % (0-0); Immature Granulocytes Auto 0.05 Thou/mm3 (0.00-0.00); Lymphocytes # (Auto) 1.6 Thou/mm3 (1.0-4.8); Lymphocytes % (Auto) 13 % (10-50); Mean Corpuscular HGB Conc 33.6 g/dl (31.0-37.0); Mean Corpuscular Hemoglobin 31.7 pg (25.0-35.0); Mean Corpuscular Volume 94 fL (80-100); Monocytes # (Auto) 0.9 Thou/mm3 (0.0-0.8); Monocytes % (Auto) 8 % (0-12); Neutrophils # (Auto) 9.7 Thou/mm3 (1.8-7.7); Neutrophils % (Auto) 78 % (37-80); Nucleated Red Blood Cell % 0 /100 WBC (0); Platelet Count 194 Thou/mm3 (140-440); RDW Standard Deviation 46.8 fL (36.4-46.3); Red Blood Count 3.41 Miln/mm3 (4.00-5.20); White Blood Count 12.4 Thou/mm3 (3.6-11.0)
[2024-07-26] MEDS: LEVOTHYROXINE SODIUM 100 MCG TABLET 150 MCG PO (06:01)
[2024-07-26 06:13] LABS: Alanine Aminotransferase 12 U/L (10-49); Albumin, Serum 3.3 gm/dL (3.4-4.8); Albumin/Globulin Ratio 1.8 (1.2-2.2); Alkaline Phosphatase 66 U/L (46-116); Anion Gap 9 (7-16); Aspartate Amino Transferase 13 U/L (0-34); BUN/Creatinine Ratio 15 Ratio (12-20); Bilirubin,Total 0.3 mg/dL (0.3-1.2); Blood Urea Nitrogen 15 mg/dL (9-23); Calcium 9.1 mg/dL (8.3-10.6); Calcium (Corrected) 9.7 mg/dL (8.5-10.1); Chloride 106 mMol/L (98-107); Globulin 1.8 gm/dL (2.3-3.5); Magnesium 1.8 mg/dL (1.6-2.6); Osmolality,Calculated 277 (275-295); Phosphorous 1.5 mg/dL (2.4-5.1); Potassium 3.9 mMol/L (3.4-5.1); Sodium 140 mMol/L (136-145); Total Protein 5.1 gm/dL (5.7-8.2); eGFR > 60 See Note
[2024-07-26 06:22] LABS: Glucose 42 mg/dL (74-106)
[2024-07-26] MEDS: DEXTROSE 50%-WATER INJ 50 ML SYRINGE IVP (06:34)
--- NOTE | 2024-07-26 06:35 | PC.NURSE ---
called Dr. Leonardo Saucedo regarding patient's blood sugar of 42 from morning labs. Assessed patient at bedside states she feels she has a headache but no other symptoms. Checked fingerstick blood sugar was 46, patient given carbs and D50 IV x1.
[2024-07-26] MEDS: POLYETHYLENE GLYCOL 17 GM PACKET PO (08:44)
[2024-07-26] MEDS: APIXABAN 2.5 MG TABLET 5 MG PO ×2 (08:44→20:55)
[2024-07-26] MEDS: SENNA TABLET 1 TAB PO (08:44)
[2024-07-26] MEDS: NAPH,KPH MBDB 1 PACKET (1.5 GM) PO (08:44)
--- NOTE | 2024-07-26 13:58 | ESPR_ITS ---
<Statement entered by Robby Nielson MD - 07/27/24 14:39> Overnight patient had glucose level of 42, was given juice, repeat glucose was 150. Glargine insuline decreased to 15 units. Will continue to monitor blood sugars and planning to discharge within 24 hours. I discussed with and supervised the production internship physician involved in the care of this patient. Patient assessment and plan was discussed with entire medicine team, including my attending. I agree with the assessment and plan as documented by production internship doctor. Patient care was discussed with my attending physician Dr. Deshawn Nielson, PGY-2 Documentation for date of: 07/26/24 Subjective Subjective Interval history: Patient is seen and examined at bedside No acute overnight events. Patient reportedly had hypoglycemic episode with sugars of around 42 without any symptoms in the morning for which patient was given juice and later it improved to 150 Patient reported that she is feeling good and denies any further complaints. Patient was supposed to get a colonoscopy, pending a referral from her primary care provider vitals are stable. Physical examination remains unremarkable Vitals are stable. Labs showed downtrending WBC 12.4, glucose 42, phosphorus 1.5 Insulin glargine is a decreased to 15 units, which is her home dose and stopped her mealtime insulin this morning Will continue to monitor blood sugars and planning to discharge tomorrow Exam Vital Signs Temp Pulse Resp BP Pulse Ox O2 Del Method 98.1 F 68 16 109/70 97 Room Air 07/26/24 12:00 07/26/24 12:00 07/26/24 12:00 07/26/24 12:00 07/26/24 12:00 07/26/24 12:00 Narrative Exam General: Awake. HEENT: Normocephalic, atraumatic, mucous membranes moist. Heart: Regular rate and rhythm, no murmurs. Lungs: Clear to auscultation with no wheezing or crackles. Abdomen: Soft, nondistended, nontender, positive bowel sounds. ?No guarding or rebound tenderness. Neurologic: Alert and oriented x3, no gross neurological deficit, and patient able to move all 4 extremities. Extremities: No edema. Skin: No rash or ecchymoses. Objective Labs 07/27/24 04:27 07/27/24 04:27 Labs: Laboratory Results - last 24 hr 07/26/24 04:48 WBC 12.4 H RBC 3.41 L Hgb 10.8 L Hct 32.1 L MCV 94 MCH 31.7 MCHC 33.6 RDW Std Deviation 46.8 H Plt Count 194 D Neut % (Auto) 78 Lymph % (Auto) 13 [place] % (Auto) 8 Eos % (Auto) 1 Baso % (Auto) 0 Neut # (Auto) 9.7 H Lymph # (Auto) 1.6 [place] # (Auto) 0.9 H Eos # (Auto) 0.1 Baso # (Auto) 0.0 Immature Gran # (Auto) 0.05 H Absolute Nucleated RBC 0.00 Immature Gran % 0 Nucleated RBC % 0 Sodium 140 Potassium 3.9 D Chloride 106 Carbon Dioxide 25.0 Anion Gap 9 BUN 15 Creatinine 1.0 Estim Creat Clear Calc 56.0 L eGFR > 60 BUN/Creatinine Ratio 15 Glucose 42 L* D Calculated Osmolality 277 Calcium 9.1 Corrected Calcium 9.7 Phosphorus 1.5 L Magnesium 1.8 Total Bilirubin 0.3 AST 13 ALT 12 Alkaline Phosphatase 66 D Total Protein 5.1 L Albumin 3.3 L Globulin 1.8 L Albumin/Globulin Ratio 1.8 ABG Interpretation ABG results: 07/24/24 20:49 ABG pH 7.20 L ABG pCO2 29 L ABG pO2 100 ABG HCO3 11 L ABG O2 Saturation 98 ABG Base Excess -16 L Quality Measures Quality Measures VTE prophylaxis Assessment & Plan Assessment Current Active Medications: Generic Name Dose Route Start Last Admin Trade Name Freq PRN Reason Stop Dose Admin Acetaminophen 650 mg 07/24/24 23:23 07/26/24 01:19 Acetaminophen 325 Mg Tablet PO 08/23/24 23:22 650 mg Q6H PRN Administration Fever >101.5 or pain (1-3) Apixaban 5 mg 07/25/24 09:00 07/26/24 08:44 Apixaban 2.5 Mg Tablet PO 08/24/24 08:59 5 mg BID ROLA Administration Glucagon 1 mg 07/25/24 09:52 Glucagon Inj 1 Mg Vial IM Q15MIN PRN BG <70, and no IV access Insulin Glargine 15 unit 07/26/24 21:00 Insulin Glargine (Lantus) 5 Unit/0.05 Ml (Per 5 Units) SC 08/25/24 20:59 HS ROLA Insulin Human Lispro 0 unit 07/25/24 11:30 07/26/24 11:20 Insulin Lispro (Admelog) 1 Unit/0.01 Ml Unit SC 08/24/24 11:29 Not Given AC ROLA Protocol Levothyroxine Sodium 150 mcg 07/25/24 06:00 07/26/24 06:01 Levothyroxine Sodium 100 Mcg Tablet PO 08/24/24 05:59 150 mcg ACBR ROLA Administration Ondansetron HCl 4 mg 07/24/24 23:23 Ondansetron Inj 2 Mg/Ml Inj 2 Ml IVP 08/23/24 23:22 Q6H PRN NAUSEA OR VOMITING Protocol Polyethylene Glycol 17 gm 07/25/24 19:00 07/26/24 08:44 Polyethylene Glycol 17 Gm Packet PO 08/24/24 18:59 17 gm QDAY ROLA Administration Sennosides 1 tab 07/24/24 23:23 07/26/24 08:44 Senna Tablet PO 08/23/24 23:22 1 tab QDAY PRN Administration constipation Protocol Plan Patient is a 59-year-old female with history of metastatic well-differentiated neuroendocrine tumor, 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 She was downgraded to the floors from ICU on 07/25/24. #Insulin-dependent diabetes mellitus type 2 #DKA, resolved HbA1c 9.9% Patient on Basaglar 15 units at bedtime, Premeal insulin lispro at night only. Jardiance Patient says that her Dexcom CGMS currently nonfunctional Plan: - ISS, hypoglycemia protocol - Glargine 20 U HS - Decreased to 15U as of 07/26/2024 as patient developed hypoglycemic episode - Lispro 3u TID with meals - stopped it as of 07/26/2024 as patient developed hypoglycemic episode - Dietitian referral for CGM sample #History of Myocardial infarction - April 2023 #?History of intracardiac thrombus Patient endorses a history of [place], has had catheterizations done and follows labor relations manager Dr. Guillen in [place], [place] Patient endorses taking Eliquis 5mg BID for a clot that was found on heart cath, location of thrombus unclear Plan: ?Continue eliquis 5mg BID - Requested records from labor relations manager #Acute kidney injury, likely pre-renal - resolved Due to vomiting, volume depletion Plan: ?will continue to monitor renal functions #Hypothyroidism Plan: ? Continue home levothroxine 150 mcg daily #Metastatic well-differentiated neuroendocrine tumor Patient is on sandostatin. Plan ? Continue outpatient follow up with oncology Health maintenance: Dispo: medtele Diet: Consistent Carb Low DVT ppx: Apixaban 5mg po bid GI ppx: None Code status: FULL CODE Plan of care discussed with attending and senior resident physician Dr. Nielson. Jerzy Sanchez, Pgy1 Attending Provider Attestation/Addendum I, Amelie Hess, DO, attest that I was physically present for the [place] portions of the service and evaluated the patient with the resident and I reviewed and discussed the case with the resident and agree with the resident's findings and plans of care as documented above Patient seen and eval this a.m. She states that she is feeling well. However, patient has some lightheadedness and dizziness due to low blood sugar this morning. Patient received 20 units of glargine overnight upon downgrade from ICU. Will discontinue and go back to her home dose of 15 units glargine nightly. Will DC the scheduled lispro at this time since patient only takes 4 units prior to dinner at home. Will continue with sliding scale otherwise. Will titrate insulin as needed. Anticipate discharge in the next 24 hours if blood sugars are better controlled. Will have dietitian provide patient with a freestyle fide for better record of her blood sugars since have been poorly controlled with commencement of her somatostatin treatment for her neuroendocrine tumor.
[2024-07-26] MEDS: INSULIN GLARGINE (Lantus) 5 UNIT/0.05 ML (PER 5 UNITS) 15 UNIT SC (20:56)
[2024-07-27] VITALS: BP 117/77; PULSE 62; PULSE 77; RESP 16; TEMP 36.9; O2SAT 97
[2024-07-27] MEDS: MELATONIN 3 MG TABLET PO (00:08)
[2024-07-27 04:00] VITALS: BP 95/58; PULSE 61; PULSE 67; RESP 16; TEMP 36.1; O2SAT 95
[2024-07-27 05:59] LABS: Basophils % (Auto) 1 % (0-2.5); Eosinophils # (Auto) 0.1 Thou/mm3 (0.0-0.5); Eosinophils % (Auto) 2 % (0-10); Hematocrit 33.9 % (36.0-46.0); Hemoglobin 11.2 g/dL (12.0-16.0); Immature Granulocytes % (Auto) 0 % (0-0); Immature Granulocytes Auto 0.02 Thou/mm3 (0.00-0.00); Lymphocytes # (Auto) 1.4 Thou/mm3 (1.0-4.8); Lymphocytes % (Auto) 22 % (10-50); Mean Corpuscular Hemoglobin 32.2 pg (25.0-35.0); Mean Corpuscular Volume 97 fL (80-100); Monocytes # (Auto) 0.6 Thou/mm3 (0.0-0.8); Monocytes % (Auto) 9 % (0-12); Neutrophils # (Auto) 4.3 Thou/mm3 (1.8-7.7); Neutrophils % (Auto) 66 % (37-80); Nucleated Red Blood Cell % 0 /100 WBC (0); Platelet Count 161 Thou/mm3 (140-440); RDW Standard Deviation 47.3 fL (36.4-46.3); Red Blood Count 3.48 Miln/mm3 (4.00-5.20); White Blood Count 6.5 Thou/mm3 (3.6-11.0)
[2024-07-27] MEDS: LEVOTHYROXINE SODIUM 100 MCG TABLET 150 MCG PO (06:20)
[2024-07-27 06:47] LABS: Alanine Aminotransferase 11 U/L (10-49); Albumin, Serum 3.3 gm/dL (3.4-4.8); Albumin/Globulin Ratio 1.8 (1.2-2.2); Alkaline Phosphatase 71 U/L (46-116); Anion Gap 9 (7-16); BUN/Creatinine Ratio 13 Ratio (12-20); Bilirubin,Total 0.4 mg/dL (0.3-1.2); Blood Urea Nitrogen 10 mg/dL (9-23); Calcium 8.9 mg/dL (8.3-10.6); Calcium (Corrected) 9.5 mg/dL (8.5-10.1); Carbon Dioxide 28.7 mMol/L (20.0-31.0); Chloride 104 mMol/L (98-107); Creatinine (Component) 0.8 mg/dL (0.6-1.3); Globulin 1.8 gm/dL (2.3-3.5); Glucose 133 mg/dL (74-106); Magnesium 1.8 mg/dL (1.6-2.6); Osmolality,Calculated 284 (275-295); Phosphorous 2.6 mg/dL (2.4-5.1); Potassium 3.6 mMol/L (3.4-5.1); Sodium 142 mMol/L (136-145); Total Protein 5.1 gm/dL (5.7-8.2); eGFR > 60 See Note
[2024-07-27 08:00] VITALS: BP 108/72; PULSE 59; PULSE 61; RESP 18; TEMP 36.2; O2SAT 95
[2024-07-27] MEDS: POTASSIUM CHLORIDE 20 mEq TABCR PO (08:10)
[2024-07-27] MEDS: APIXABAN 2.5 MG TABLET 5 MG PO (08:10)
[2024-07-27] MEDS: POLYETHYLENE GLYCOL 17 GM PACKET PO (08:10)
--- NOTE | 2024-07-27 15:31 | ESDS_ITS ---
<Statement entered by Amelie Hess DO - 07/28/24 11:43> I, Amelie Hess DO, attest that I was physically present for the coronado portions of the service and evaluated the patient with the resident and I reviewed and discussed the case with the resident and agree with the resident's findings and plans of care as documented above <Statement entered by Robby Nielson MD - 07/28/24 11:21> I discussed with and supervised the international controller physician involved in the care of this patient. Patient assessment and plan was discussed with entire medicine team, including my attending. I agree with the assessment and plan as documented by international controller doctor. Patient care was discussed with my attending physician Dr. Deshawn Nielson, PGY-2 Planned Discharge Date 07/27/24 DS: Providers Provider Date of admission: 07/24/24 23:23 Primary care physician: Physician Nath Primary/Family Admitting Provider: Amelie Hess DO Attending Provider on Admission: Amelie Hess DO Consults: 07/24/24 23:31 Referral Registered Dietitian Routine Comment: Attending Provider on DC: Ying Colmenares MD Discharging Provider: Ying Colmenares MD DS: Diagnosis Problem List Completed Was Problem List Reviewed/Reconciled?: Yes Hospital Course Hospital Course Hospital course: The patient is a 59-year-old female with a previous medical history of 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 At home she is using Basaglar, Jardiance and sliding scale insulin. In the ED she was found to have WBC count of 14.5, bicarb 17.5, anion gap 23, BUN 26, creatinine 1.6, EGFR 37, glucose 393, A1c 9.9, lactic acid 3.0, CRP 3.2, beta hydroxybutyrate 5.9, procalcitonin 0.99. ABG showed pH of 7.20, pCO2 29, PO2 100, bicarb 11. Patient was admitted to the ICU for DKA management. Her condition has improved, anion gap is closed and she was able to be transitioned to the subcutaneous insulin and tolerated diet. Patient was seen and examined at the bedside and was medically cleared for discharge. Hospital diagnoses: #Insulin-dependent diabetes mellitus type 2 #DKA, resolved #History of Myocardial infarction - April 2023 #?History of intracardiac thrombus #Acute kidney injury, likely pre-renal - resolved #Hypothyroidism #Metastatic well-differentiated neuroendocrine tumor Discharge recommendations: Discharge recommendations: - Follow-up with your PCP in 1 weeks - Inject Glargine 15 Units once daily before sleep - Inject Lispro according to the sliding scale protocol: Insulin sliding scale: - 150-200 mg/dL 1 unit ? -201-250 mg/dL 2 units ? -251-300 mg/dL 3 units ? -Greater than 300 mg/dL 4 units - Continue the rest of your medication as prescribed - If your symptoms worsen come to the ED or call 911 Plan of care discussed with attending Dr. Hess, PGY-[address] Nielson. Ying Colmenares MD, PGY 1. Time Spent with Patient Time attestation: Total time spent providing and/or coordinating discharge services: Time spent: Greater than 30 minutes Quality: Stroke Pt Provided Written Stroke Discharge Instructions: No Exam Vital Signs Temp Pulse Resp BP Pulse Ox O2 Del Method 97.1 F 59 L 18 108/72 95 Room Air 07/27/24 08:00 07/27/24 08:00 07/27/24 08:00 07/27/24 08:00 07/27/24 08:00 07/27/24 08:00 Narrative Exam Physical Exam General: Awake and in no acute distress. Conversational and non-toxic appearing. HEENT: Normocephalic, atraumatic, mucous membranes moist. Heart: Regular rate and rhythm, no murmurs. Lungs: Clear to auscultation with no wheezing or crackles. Abdomen: Soft, nondistended, nontender, positive bowel sounds. ?No guarding or rebound tenderness. Neurologic: Alert and oriented x3, no gross neurological deficit, and patient able to move all 4 extremities. Extremities: No edema. Skin: No rash or ecchymoses. Discharge Plan Plan Patient Disposition: HOME (Self Care) Patient condition on transfer: Stable Care Plan Goals: Discharge recommendations: - Follow-up with your PCP in 1 weeks - Inject Glargine 15 Units once daily before sleep - Inject Lispro according to the sliding scale protocol: Insulin sliding scale: - 150-200 mg/dL 1 unit ? -201-250 mg/dL 2 units ? -251-300 mg/dL 3 units ? -Greater than 300 mg/dL 4 units - Continue the rest of your medication as prescribed - If your symptoms worsen come to the ED or call 911 Prescriptions/Referrals Prescriptions/Med Rec: New insulin lispro 100 unit/mL Solution 1 sliding scale dose SCi AC 30 Days Qty: 10 0RF (DME) FreeStyle Mike 3 Sensor Device See Rx Instructions .Route Qty: 1 0RF Rx Instructions: As directed (DME) FreeStyle Mike 3 [place] Misc See Rx Instructions .Route Qty: 1 0RF Rx Instructions: As directed Continued pravastatin 40 mg Tablet 40 mg PO QDAY aspirin 81 mg Tablet 81 mg PO QDAY Jardiance 25 mg Tablet 25 mg PO QDAY insulin glargine [Basaglar KwikPen U-100 Insulin] 100 unit/mL (3 mL) Insulin Pen 15 unit SUBCUT QPM Eliquis 5 mg Tablet 5 mg PO BID levothyroxine 150 mcg tablet 150 mcg PO QDAY Patient Comments: TAKE 1 TABLET BY MOUTH EVERY DAY IN THE MORNING ON EMPTY STOMACH FOR 90 DAYS loratadine 10 mg tablet 10 mg PO QDAY Patient Comments: TAKE 1 TABLET BY MOUTH EVERY DAY pantoprazole 40 mg tablet,delayed release (DR/EC) 40 mg PO QPM Patient Comments: TAKE 1 TABLET BY MOUTH EVERY DAY baclofen 10 mg tablet 5 mg PO QDAY PRN (Reason: back pain) Patient Comments: TAKE 1/2 TABLET BY MOUTH EVERY DAY FOR 30 DAYS 90 metoprolol succinate 25 mg tablet extended release 24 hr 25 mg PO QDAY Patient Comments: TAKE 1 TABLET BY MOUTH EVERY DAY FOR 90 DAYS Discontinued polyethylene glycol 3350 17 gram/dose powder See Rx Instructions PO QDAY Patient Comments: 1 SCOOP MIXED WITH 8 OUNCES OF FLUID ORALLY ONCE A DAY 30 DAYS Rx Instructions: orally daily; 1 SCOOP MIXED WITH 8 OUNCES OF FLUID ORALLY; insulin lispro [Humalog KwikPen Insulin] 100 unit/mL insulin pen 1 sliding scale dose SUBCUT QPM PRN (Reason: sliding scale) Patient Comments: INJECT 2-10 UNITS DIRECTED SUBCUTANEOUS at dinner Referrals: No Primary/Family,Physician [Primary Care Provider] - Patient/Caregiver Discharge Instructions Other Discharge Activity Instructions:: Please see your PCP within x1 week of discharge If symptoms worsen go to your nearest hospital/ED Education Materials: CGM, Diabetes Exercise Plan, Diabetes Carbs Fats Protein Print Language: Urdu Stand Alone Forms: Keiko Award Info., Patient Portal Info Letter Discharge Order Discharge Orders: Discharge (Routine); Ordered 07/27/24 Ordered By: Robby Nielson Quality Discharge Quality Measures VTE prophylaxis
== END 2024-07-27 10:49 | disposition home or self-care (01) | DRG 420 ==
LOC: SERX 22:40 → SERHOLD 23:44 → S2SX 07-25 01:56 → S3NX 07-25 21:04
PROVIDERS: Nurse Practitioner Primary Care; Physician Assistant; Student in an Organized Health Care Education/Training Program; Admitting Provider Internal Medicine; Emergency Provider Emergency Medicine; Visit Provider Internal Medicine
DX: E11.10 Type 2 diabetes mellitus with ketoacidosis without coma (principal); E03.9 Hypothyroidism, unspecified; I25.2 Old myocardial infarction; C78.7 Secondary malignant neoplasm of liver and intrahepatic bile duct; C78.00 Secondary malignant neoplasm of unspecified lung; N17.9 Acute kidney failure, unspecified; E11.649 Type 2 diabetes mellitus with hypoglycemia without coma; E78.5 Hyperlipidemia, unspecified; E86.9 Volume depletion, unspecified; Z79.4 Long term (current) use of insulin; D3A.8 Other benign neuroendocrine tumors; Z79.01 Long term (current) use of anticoagulants; Z79.84 Long term (current) use of oral hypoglycemic drugs; Z79.890 Hormone replacement therapy
CPT/HCPCS: 36415; 36600; 71045; 80053; 80069; 81001; 82010; 82803; 83036; 83605; 83690; 83735; 84100; 84145; 85025; 86140; 87040; 87081; 87086; 93225; 96361; 96374; 96375; 99291; J1815; J2270; J2405; J3480; J7030; J7120; J7121; A9270

== ENCOUNTER 2024-08-08 13:05 | Outpatient (RCR) | payer MEDICAID, SELFPAY | END 2024-08-19 23:59 | disposition home or self-care (01) | LOC: SCTC 13:05 | PROVIDERS: Referring Provider Internal Medicine Hematology & Oncology; Visit Provider Internal Medicine Hematology & Oncology | DX: C7A.8 Other malignant neuroendocrine tumors (principal); C7B.8 Other secondary neuroendocrine tumors; E03.9 Hypothyroidism, unspecified; Z79.890 Hormone replacement therapy; E11.9 Type 2 diabetes mellitus without complications; R53.83 Other fatigue | CPT/HCPCS: 96372; J2353 ==

== ENCOUNTER 2024-09-05 12:52 | Outpatient (RCR) | payer MEDICAID, SELFPAY | END 2024-09-19 23:59 | disposition home or self-care (01) | LOC: SCTC 12:52 | PROVIDERS: PCP Physician Assistant; Referring Provider Internal Medicine Hematology & Oncology; Visit Provider Internal Medicine Hematology & Oncology | DX: C7A.8 Other malignant neuroendocrine tumors (principal); C7B.8 Other secondary neuroendocrine tumors; R53.0 Neoplastic (malignant) related fatigue; E03.9 Hypothyroidism, unspecified; Z79.890 Hormone replacement therapy; E11.65 Type 2 diabetes mellitus with hyperglycemia; Z79.84 Long term (current) use of oral hypoglycemic drugs; Z79.4 Long term (current) use of insulin | CPT/HCPCS: 96372; J2353 ==

== ENCOUNTER 2024-10-03 08:44 | Outpatient (RCR) | payer MEDICAID, SELFPAY ==
--- NOTE | 2024-10-01 14:35 | CTCFLWUP_ITS ---
Patient: FLAKITA ROSS : 1965 Page 5 of 5 FOLLOW UP NOTE DATE OF SERVICE: 10/01/2024 NAME: FLAKITA ROSS ACCOUNT: [id number] : 1965 AGE: 59 INTERVAL HISTORY: Subjective: Chief Complaint Patient is feeling better. She has been gaining weight since start of treatment. Since last visit she has gained 8 pounds. She is being scheduled for colonoscopy medications and Supplements - Jardiance - Insulin Review of Systems General: Positive for fatigue. Negative for weight loss. Endocrine: Positive for uncontrolled diabetes. Gastrointestinal: Negative for diarrhea. 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 April 2023: Ms. Ross had myocardial infarction. During the workup she was found to have multiple lesions in the liver. 07/31/2023: Ms. 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 aspirin - 81 mg 1 tab Daily 2. Augmentin - 500-125 mg 1 tab 1 tab twice daily 3. Basaglar KwikPen U-100 Insulin - 100 unit/mL (3 mL) 10 Unit Daily 4. Eliquis - 5 mg 1 tab Twice a Day 5. Jardiance - 25 mg 1 tab Daily 6. levothyroxine - 112 mcg 1 tab Daily 7. lisinopril - 5 mg 1 tab Daily 8. loratadine - 10 mg 1 tab Daily 9. pantoprazole - 40 mg 1 Daily 10. rosuvastatin - 20 mg 1 tab Daily Medications Last Reconciled by Yoly Lynn MD on 10/01/2024 ALLERGIES: Penicillins REVIEW OF SYSTEMS: A complete 14-point review of systems was performed and is negative except as noted in interval history. PHYSICAL EXAMINATION: VITAL SIGNS: Temperature?97.5, B/P?111/72, Oxygen?Saturation?96% Weight?148?lbs (Change?since?09/05/24:?3.4?lbs) PAIN: 0 - No pain ECOG Performance Status: 0 - Asymptomatic and fully active GENERAL APPEARANCE: Appears well, in no apparent distress, appropriately interactive. HEENT: Normocephalic, no temporal wasting, normal conjunctiva, no scleral icterus, normal hearing, lips without lesions, neck normal range of motion. CARDIOVASCULAR: Not assessed. PULMONARY: Normal respiratory effort, no respiratory distress or use of accessory muscles, speaking in full sentences, no tachypnea. EXTREMITIES: No pedal edema or cyanosis. SKIN: Normal skin appearance. NEUROLOGIC: Alert and oriented x4. PSHYCHIATRIC: Appropriate affect, mood normal, behavior normal, intact thought and speech. LABORATORY DATA: I have personally reviewed and interpreted each of the patient?s relevant lab tests, abnormal findings are below: Date 07/26/24 07/27/24 ??WHITE?BLOOD?COUNT?(Thou/mm3) 12.4?H 6.5 ??RED?BLOOD?COUNT?(Miln/mm3) 3.41?L 3.48?L ??HEMOGLOBIN?(gm/dl) 10.8?L 11.2?L ??HEMATOCRIT?(%) 32.1?L 33.9?L ??PLATELET?COUNT?(Thou/mm3) 194 161 ??NEUTROPHILS?%,?AUTO?(%) 78 66 ??LYMPH?%,?AUTO?(%) 13 22 ??NEUTROPHILS,?AUTO?(Thou/mm3) 9.7?H 4.3 ??GLUCOSE,RANDOM?(mg/dL) ? 133?H ??BLOOD?UREA?NITROGEN?(mg/dL) ? 10 ??CREATININE?(mg/dL) ? 0.80 ??SODIUM?(mmol/L) ? 142 ??POTASSIUM?(mmol/L) ? 3.6 ??CHLORIDE?(mmol/L) ? 104 ??CrCl?(CandG)?(ml/min) ? 75.93 ??ALT/SGPT?(Unit/L) ? 11 ??ALKALINE?PHOSPHATASE?(Unit/L) ? 71 ??BILIRUBIN,?TOTAL?(mg/dL) ? 0.4 ??PROTEIN?TOTAL?(gm/dl) ? 5.1?L ??ALBUMIN,?SERUM?(gm/dl) ? 3.3?L ??GLOBULIN?(gm/dl) ? 1.8?L ??ALBUMIN/GLOBULIN?RATIO ? 1.8 ??CALCIUM,?SERUM?(mg/dL) ? 8.9 ??CALCIUM?SERUM?(CORRECTED)?(mg/dL) ? 9.5 ??MAGNESIUM?(mg/dL) ? 1.8 ASSESSMENT/PLAN: 1. 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 No clinical symptoms. 2. Hypothyroidism of 40 years duration. Currently Ms. Ross is on levothyroxine. 3. Type 2 diabetes of 3 years duration 4. 70 pound weight loss in 1 year (September 2022?September 2023) 5. Myocardial infarction April 2023. Currently being followed by Dr. Guillen of [place]. Assessment and Plan: Zackery lee, patient with neuroendocrine tumor metastatic to liver, presents for follow-up with improving chromogranin levels and stable weight, but reports persistent fatigue and uncontrolled diabetes. Neuroendocrine tumor metastatic to liver Assessment: Patient's condition appears stable based on improving chromogranin levels (61 in May, down from 74 in March and 65 prior) and stable weight. Previous PET-DOTATATE scan from November showed numerous liver lesions. Patient reports persistent fatigue but denies weight loss. Lab results show WBC 6.8, hemoglobin 13.8, and normal liver enzymes, further supporting disease stability. Plan: Will file follow-up on PET dotatate repeat scan Serum chromogranin levels normal Labs in 3 months Continue Sandostatin ORDERS: Order # Description [id number] CBC + Comprehensive Metabolic Panel [id number] Lab Appointment [id number] CBC + Comprehensive Metabolic Panel [id number] Lab Appointment [id number] PET/CT of Skull to mid-thigh for Restaging [id number] CBC + Comprehensive Metabolic Panel [id number] Lab Appointment [id number] CBC + Comprehensive Metabolic Panel [id number] Lab Appointment [id number] CBC + Comprehensive Metabolic Panel [id number] Lab Appointment [id number] CBC + Comprehensive Metabolic Panel [id number] Lab Appointment [id number] CBC + Comprehensive Metabolic Panel [id number] Lab Appointment [id number] CBC + Comprehensive Metabolic Panel [id number] Lab Appointment [id number] CBC + Comprehensive Metabolic Panel [id number] Lab Appointment [id number] CBC + Comprehensive Metabolic Panel [id number] Lab Appointment [id number] CBC + Comprehensive Metabolic Panel [id number] Lab Appointment [id number] CBC + Comprehensive Metabolic Panel [id number] Lab Appointment [id number] CBC + Comprehensive Metabolic Panel [id number] Lab Appointment [id number] CBC + Comprehensive Metabolic Panel [id number] Lab Appointment RETURN TO CLINIC: I reviewed the diagnosis, prognosis, and recommended treatment/procedure options with the patient (and/or their legal order entry representative), including the potential benefits, risks, side effects and alternative therapies. We also discussed the option of no treatment and the possibility of clinical trial participation, if applicable. All questions were addressed, and they demonstrated understanding. They provided informed consent to proceed with the proposed plan of care. BILLING AND COMPLIANCE: I reviewed external records from providers outside my specialty as summarized above. I spent a total of 50 minutes on this patient?s care on the day of their visit excluding time spent related to any billed procedures. This time includes time spent with the patient as well as time spent documenting in the medical record, reviewing patients records and tests, obtaining history, placing orders, communicating with other healthcare professionals, counseling the patient, family or caregiver, and/or care coordination for the diagnoses above. Electronically Signed by: {Object.Sanct_ID*PnP.NameFL@}, {Object.Sanct_ID*PnP.Suffix@U} D: {Object.Sanct_Date} T: {Object.Sanct_Time} CC: PCP: Sherry Christiansen Referring: Sherry Christiansen This document was completed utilizing speech recognition software. Grammatical errors, random word insertions, pronoun errors, and incomplete sentences are an occasional consequence of this system due to software limitations, ambient noise, and hardware issues. Any formal questions or concerns about the content, text or information contained within the body of this dictation should be directly addressed to the provider for clarification.
== END 2024-10-20 23:59 | disposition home or self-care (01) ==
LOC: SCTC 08:44
PROVIDERS: PCP Physician Assistant; Referring Provider Physician Assistant; Visit Provider Internal Medicine Hematology & Oncology
DX: C7A.8 Other malignant neuroendocrine tumors (principal); C7B.8 Other secondary neuroendocrine tumors; E11.9 Type 2 diabetes mellitus without complications; I25.2 Old myocardial infarction
CPT/HCPCS: 96372; 99212; J2353; G0463

== ENCOUNTER 2024-10-16 20:49 | Emergency (ER) | payer MEDICAID, SELFPAY ==
[2024-10-16 20:50] VITALS: BMI 23.1
[2024-10-16 21:31] VITALS: BP 128/78; PULSE 66; RESP 20; TEMP 37; O2SAT 96
--- NOTE | 2024-10-16 21:49 | EKG_ITS ---
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
--- NOTE | 2024-10-16 21:50 | XR_ITS ---
Examination: PA chest single view TECHNIQUE: Upright PA chest single view Date and time: October 16, 2024 2159 hours INDICATIONS: Epigastric pain today. FINDINGS: Normal heart size. Lungs are clear. Osseous structures are intact IMPRESSION: No active disease
--- NOTE | 2024-10-16 21:51 | PD.EDRME ---
Rapid Medical Screening Exam [facility] Arrival date/time: 10/16/24 20:49 59F with history of neuroendocrine tumors, DM w/ DKA, hypothyroidism, and cholecystectomy presents to ED with several hours of epigastric/lower chest pain. Chief Complaint: Abdominal Pain Vital signs: Vital Signs Temperature 98.6 F 10/16/24 21:31 Pulse Rate 66 10/16/24 21:31 Respiratory Rate 20 10/16/24 21:31 Blood Pressure 128/78 10/16/24 21:31 Pulse Oximetry (%) 96 10/16/24 21:31 Oxygen Delivery Method Room Air 10/16/24 21:31
[2024-10-16 22:32] LABS: Base Excess, Venous 1 (-3-3); O2 Saturation, Venous 72 % (96-97); PCO2, Venous 49 mmHg (36-56); PO2, Venous 39 mmHg (15-58); pH, Venous 7.36 (7.33-7.66)
[2024-10-16 22:35] LABS: Beta Hydroxybutyrate 0.1 mmol/L (<0.6)
[2024-10-16 22:37] LABS: Basophils # (Auto) 0.1 Thou/mm3 (0.0-0.2); Basophils % (Auto) 1 % (0-2.5); Eosinophils # (Auto) 0.2 Thou/mm3 (0.0-0.5); Eosinophils % (Auto) 2 % (0-10); Hematocrit 38.5 % (36.0-46.0); Hemoglobin 12.3 g/dL (12.0-16.0); Immature Granulocytes Auto 0.02 Thou/mm3 (0.00-0.00); Lymphocytes # (Auto) 1.9 Thou/mm3 (1.0-4.8); Lymphocytes % (Auto) 21 % (10-50); Mean Corpuscular HGB Conc 31.9 g/dl (31.0-37.0); Mean Corpuscular Hemoglobin 31.7 pg (25.0-35.0); Mean Corpuscular Volume 99 fL (80-100); Monocytes # (Auto) 0.6 Thou/mm3 (0.0-0.8); Monocytes % (Auto) 6 % (0-12); Neutrophils # (Auto) 6.7 Thou/mm3 (1.8-7.7); Neutrophils % (Auto) 71 % (37-80); Nucleated Red Blood Cell # 0.00 Thou/mm3 (0.00-0.00); Nucleated Red Blood Cell % 0 /100 WBC (0); Platelet Count 222 Thou/mm3 (140-440); RDW Standard Deviation 45.0 fL (36.4-46.3); Red Blood Count 3.88 Miln/mm3 (4.00-5.20); White Blood Count 9.5 Thou/mm3 (3.6-11.0)
[2024-10-16 22:52] LABS: Alanine Aminotransferase 17 U/L (10-49); Albumin, Serum 4.3 gm/dL (3.4-4.8); Albumin/Globulin Ratio 1.7 (1.2-2.2); Alkaline Phosphatase 122 U/L (46-116); Anion Gap 9 (7-16); Aspartate Amino Transferase 24 U/L (0-34); BUN/Creatinine Ratio 9 Ratio (12-20); Bilirubin,Total 0.4 mg/dL (0.3-1.2); Blood Urea Nitrogen 9 mg/dL (9-23); Calcium 9.6 mg/dL (8.3-10.6); Calcium (Corrected) 9.6 mg/dL (8.5-10.1); Carbon Dioxide 25.6 mMol/L (20.0-31.0); Chloride 102 mMol/L (98-107); Creatinine (Component) 1.0 mg/dL (0.6-1.3); Estimated Creatinine Clearance 58.2 mL/min (>60); Globulin 2.6 gm/dL (2.3-3.5); Glucose 187 mg/dL (74-106); Lipase 29 U/L (12-53); Osmolality,Calculated 277 (275-295); Potassium 4.1 mMol/L (3.4-5.1); Sodium 137 mMol/L (136-145); Total Protein 6.9 gm/dL (5.7-8.2); Triglycerides 111 mg/dL (30-150); Troponin I < 0.002 ng/mL (0.0-0.045); eGFR > 60 See Note
[2024-10-16 23:27] LABS: Collection Type, Urine Clean Catch
[2024-10-16 23:37] LABS: Bilirubin,Urine Negative (Negative); Blood,Urine Trace (Negative); Clarity,Urine Clear (Clear/Hazy); Color,Urine Colorless (Lt Yel-Yel); Culture Indicated,Urine Not Indicated; Glucose, Urine Negative (Negative); Ketones,Urine Negative (Negative); Leukocyte Esterase,Urine Positive (Negative); Nitrite,Urine Negative (Negative); PH,Urine 6.0 (5.0-7.0); Protein,Urine Negative (Neg - Trace); RBC,Urine 2 /hpf (0-3); Specific Gravity,Urine 1.013 (1.001-1.035); Squamous Epithelial Cell,Urine 1 /hpf (0-5); Urobilinogen,Urine Negative mg/dL (0.0-1.0); WBC,Urine 4 /hpf (0-5)
--- NOTE | 2024-10-17 00:10 | PD.EDABDPN ---
ED Abdominal Pain RME/HPI General Chief Complaint: Abdominal Pain Stated complaint: STOMACH PAIN Time seen by provider: 10/16/24 21:59 Arrival date/time: 10/16/24 20:49 RME / HPI RME / HPI narrative: 10/16/24 20:49 59F with history of neuroendocrine tumors, DM w/ DKA, hypothyroidism, and cholecystectomy presents to ED with several hours of epigastric/lower chest pain. ------- Dr. Lewis?s Main ED Evaluation: 59yo female with new onset of epigastric pain at 2pm today that remained constant throughout the day, described as sharp and nonradiating. No reported N/V/D or urinary irritative symptoms. Symptoms began ~1 hour after lung. No previous similar episodes. PMH includes neuroendocrine tumors, DM. PSH includes cholecystectomy, tubal litigation. Social history negative for tobacco or alcohol. Allergy to penicillin. Related Data Home Medications ?Medication ?Instructions ?Recorded ?Confirmed apixaban 5 mg tablet (Eliquis) 5 mg PO BID 09/21/23 07/25/24 aspirin 81 mg tablet 81 mg PO QDAY 09/21/23 07/25/24 empagliflozin 25 mg tablet 25 mg PO QDAY 09/21/23 07/25/24 (Jardiance) insulin glargine 100 unit/mL (3 15 unit subcut QPM 09/21/23 07/25/24 mL) subcutaneous pen (Basaglar KwikPen U-100 Insulin) pravastatin 40 mg tablet 40 mg PO QDAY 09/21/23 07/25/24 baclofen 10 mg tablet 5 mg PO QDAY PRN back pain 07/25/24 07/25/24 levothyroxine 150 mcg tablet 150 mcg PO QDAY 07/25/24 07/25/24 loratadine 10 mg tablet 10 mg PO QDAY 07/25/24 07/25/24 metoprolol succinate 25 mg 25 mg PO QDAY 07/25/24 07/25/24 tablet,extended release 24 hr pantoprazole 40 mg tablet,delayed 40 mg PO QPM 07/25/24 07/25/24 release Previous Rx's ?Medication ?Instructions ?Recorded blood-glucose sensor (FreeStyle #1 ea 07/27/24 Mike 3 Sensor device) blood-glucose,slab puller,cont #1 ea 07/27/24 (Vovici Mike 3 [place]) metoclopramide HCl 5 mg tablet 5 mg PO QDAY #28 tabs 10/17/24 (Reglan) sucralfate 100 mg/mL oral 10 ml PO BID #1,000 mL 10/17/24 suspension (Carafate) Allergies Allergy/AdvReac Type Severity Reaction Status Date / Time codeine Allergy Severe VOMITING Verified 10/16/24 20:50 Penicillins Allergy Severe Hives Verified 10/16/24 20:50 Review of Systems Review of Systems Systems Reviewed: All systems reviewed, normal except as documented Past Medical History Past Medical History NEUROLOGIC: Negative Neurological Disorders, Cerebrovascular Accident, Transient Ischemic Attacks (TIA), Dementia, Alzheimer's Disease, Parkinson's Disease, Brain Tumor, Meningitis, Seizures, Epilepsy, Multiple Sclerosis, Cerebral Palsy, Amyotrophic Lateral Sclerosis (ALS/Angelika Gehrig's), Guillain-Murray Syndrome, Spina Bifida, Paralysis, Peripheral Neuropathy, Calderón's Palsy, Subdural Hematoma, Migraine, Head Trauma, Spinal Cord Injury or Traumatic Brain Injury CARDIAC: Positive Cardiac Disorders, Heart Murmur, Hypercholesterolemia and Hypertension; Negative Myocardial Infarction, Cardiac Arrhythmia, Atrial Fibrillation, Angina, Coronary Artery Disease, Atherosclerotic Heart Disease, Peripheral Vascular Disease, Aneurysm, Congestive Heart Failure, Congenital Heart Disease, Valvular Heart Disease, Rheumatic Fever, Cardiomyopathy, Edema, Pericarditis, Cellulitis, Deep Vein Thrombosis, Hypotension or Varicose Veins RESPIRATORY: Negative Chronic Obstructive Pulmonary Disease (COPD), Asthma, Bronchitis, Emphysema, Pneumonia, Pulmonary Fibrosis, Cystic Fibrosis, Tuberculosis, Pulmonary Embolism, Pulmonary Edema or Sleep Apnea GASTROINTESTINAL: Positive Gastrointestinal Disorders and Gall Bladder Disease; Negative Hepatitis, Cirrhosis, Pancreatitis, Celiac Disease, Gastrointestinal Bleed, Esophageal Varices, Quigley's Esophagus, Colitis, Ulcerative Colitis, Diverticulitis, Diverticulosis, Ulcer, Colorectal Cancer, Irritable Bowel, Crohn's Disease, Obstructive Bowel, Hiatal Hernia, Hemorrhoids, Gastroesophageal Reflux Disease or Obesity GENITOURINARY: Negative Genitourinary Disorders, Renal Disease, Kidney Stones, Polycystic Kidney Disease, Neurogenic Bladder, Inguinal Hernia, Dialysis, Prostate Cancer or Benign Prostatic Hyperplasia REPRODUCTIVE: Positive Previous Pregnancies; Negative Breast Cancer, Endometriosis, Genital Herpes, Gonorrhea, Pelvic Inflammatory Disease, Syphilis, Testicular Cancer or Uterine Prolapse MUSCULOSKELETAL: Positive Musculoskeletal Disorders and Arthritis; Negative Muscular Dystrophy, Myasthenia Gravis, Marfan's Syndrome, Bone Cancer, Rheumatoid Arthritis, Osteoporosis, Degenerative Disk Disease, Gout, Scoliosis, Carpal Tunnel Syndrome, Fibromyalgia, Fractures, Degenerative Joint Disease, Osteomyelitis or Poliovirus ENT: Negative Cataracts, Glaucoma, Blind, Retinal Detachment, Macular Degeneration, Ear Infection, Deafness, Head Trauma or Eye Prosthesis ENDOCRINE: Positive Endocrine Disorders, Diabetes Mellitus Type 2, Hypoglycemia and Hypothyroidism; Negative Diabetes Mellitus Type 1, Karon's Syndrome, [place]'s Disease, Hyperthyroidism, Parathyroid Disease, Pituitary Disease, Systemic Lupus Erythematosus, Syndrome of Inappropriate Antidiuretic Hormone (SIADH), Adrenal Disease or Graves' Disease HEMATOLOGIC: Positive Blood Disorders and Anemia; Negative Leukemia, Hemophilia, Thalassemia, Sickle Cell Disease or Clotting Problems PSYCHO/SOCIAL: Negative Psychiatric Problems, Schizophrenia, Recreational Drug Use, Bipolar Disorder, Depression, Anxiety, Behavior Problems, Self-Mutilation, Attention Deficit Disorder, Attention Deficit Hyperactivity Disorder, Depression, Post Traumatic Stress Disorder or Eating Disorder OTHER HISTORY: Positive Chicken Pox, Cancer and Lung Cancer; Negative Hospitalization, Autoimmune Disease, Down Syndrome, Autism, Developmental Delay, Shingles, Falls, Blood Transfusions, Blood Transfusion Reaction, Anesthesia Reactions, Organ Transplant, Chemotherapy, Radiation Therapy, Hyperbaric Therapy, MRSA, VRSA, Vancomycin-Resistant Enterococci, Human Immunodeficiency Virus (HIV), Measles, Mumps, Rubella ([place]ut Measles), Pertussis, Clostridium Difficile, Breast Cancer, Cervical Cancer, Colorectal Cancer, Ovarian Cancer, Prostate Cancer or Testicular Cancer Family History FAMILY HISTORY: Positive Family Respiratory Disorders, Family Cancer and Family Surgery; Negative Family Psychiatric Problems, Family Cardiac Disorders, Family Gastrointestinal Problems or Family Anesthesia Reaction Surgical History SURGICAL: Positive Cardiac Catheterization, Angiogram and Tubal Ligation; Negative Cardiac Surgery, Open Heart Surgery, Coronary Artery Bypass Graft, Valve Replacement, Vascular Surgery, Coronary Stent, Pacemaker, Auto Implanted Cardiovert Defib, Carotid Endarterectomy, Endocrine Surgery, Thyroidectomy, Ear Surgery, Tympanostomy Tube, Eye Surgery, Nose Surgery, Oral Surgery, Tonsillectomy, Adenoidectomy, Cochlear Implant, Corneal Transplant, Throat Surgery, Abdominal Surgery, Tracheostomy, Gastric Bypass Surgery, Gastrostomy, Bowel Surgery, Nephrectomy, Transurethral Resection, Joint Replacement, Amputation, Open Reduction Internal Fixation, Arthroscopy, Neurologic Surgery, Brain Shunt, Mastectomy, Lumpectomy, Hysterectomy, Section, Vasectomy or Organ Transplant Social History SMOKING STATUS: Never smoker SECOND HAND EXPOSURE: No SUBSTANCE USE: does not use ED Exam Narrative Physical exam: GENERAL APPEARANCE: alert and oriented x 4, well-developed, well-nourished, nontoxic, no acute distress VITALS: All vitals were reviewed and the pulse ox is 96% on room air, which is normal according to my interpretation. HEENT: Normocephalic, atraumatic; pupils equal, round, reactive to light; EOMI; mucous membranes pink, moist; oropharynx clear NECK: Supple LUNGS: CTABL; no wheezes, no rales, no rhonchi HEART: Regular rate, regular rhythm; normal S1, S2; no murmurs ABDOMEN: non distended; soft, point high epigastric tenderness with slight guarding, no peritoneal findings BACK: no CVA tenderness EXTREMITIES: atraumatic; no edema NEUROLOGIC: awake; alert and oriented x4; cranial nerves II-XII grossly intact; no focal sensory or motor deficits PSYCHIATRIC: appropriate mood and affect SKIN: warm, dry, normal color; no rashes Course Quality Measures none Orders Category Date Time Status EKG (ED ONLY) *Do not use* NOW Care 10/16/24 21:49 Completed EKG (ED Only) Stat Exams 10/16/24 21:49 Draft XR chest 1V portable Stat Exams 10/16/24 21:50 Completed Beta Hydroxybutyrate Stat Lab 10/16/24 22:21 Completed CBC Stat Lab 10/16/24 22:21 Completed Comprehensive Metabolic Panel Stat Lab 10/16/24 22:21 Completed Lipase Stat Lab 10/16/24 22:21 Completed Triglycerides Stat Lab 10/16/24 22:21 Completed Troponin I Stat Lab 10/16/24 22:21 Completed Urinalysis, C/S if Indicated Stat Lab 10/16/24 23:21 Completed VBG [Venous Blood Gas] Stat Lab 10/16/24 22:21 Completed Lidocaine 2% Viscous [Xylocaine 2% Viscous] Med 10/17/24 00:17 Discontinued 15 ml PO X1 ONE Metoclopramide Inj [Reglan Inj] Med 10/17/24 00:17 Discontinued 10 mg IVP X1 ONE Pantoprazole Inj [Protonix Inj] Med 10/17/24 00:17 Discontinued 40 mg IVP X1 ONE Sodium Chloride 0.9% 1000 ml [Ns] 1,000 ml Med 10/17/24 00:18 Discontinued IV 999 mls/hr mg Hyd/Al Hyd/Andie Susp [Maalox Susp] Med 10/17/24 00:17 Discontinued 30 ml PO X1 ONE Vital Signs Vital signs: Vital Signs Temperature 98.6 F 10/16/24 21:31 Pulse Rate 66 10/16/24 21:31 Respiratory Rate 20 10/16/24 21:31 Blood Pressure 128/78 10/16/24 21:31 Pulse Oximetry (%) 96 10/16/24 21:31 Oxygen Delivery Method Room Air 10/16/24 21:31 Abdominal Pain MDM MDM Narrative MDM Narrative:: Scribe Attestation: 10/17/24 - Stephanie Hagen am scribing for and in the presence of Dr. Lewis. 59yo female with new onset of epigastric pain at 2pm today that remained constant throughout the day, described as sharp and nonradiating. No reported N/V/D or urinary irritative symptoms. Please see PE findings. Lab markers including CBC, chemistries, and lipase are all unremarkable. UA shows equivocal infection. IV established and patient received combination of PPI, propulsive agent, and PO GI cocktail with considerable relief. Suspect gastritis versus PUD. Will treat accordingly. 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 [facility] Report Signed Patient: SINA PATHAK. Record#: [id number] Birthdate: 1965 Age/Sex: 59 / F Location: [facility] Attending Dr: Ordering Physician: Narinder Valdez PA-C Date of Service: 10/16/24 Procedure(s): XR chest 1V portable Accession Number(s): [id number] cc: Fracisco Copeland MD; Narinder Valdez PA-C~ Examination: PA chest single view TECHNIQUE: Upright PA chest single view Date and time: October 16, 2024 2159 hours INDICATIONS: Epigastric pain today. FINDINGS: Normal heart size. Lungs are clear. Osseous structures are intact IMPRESSION: No active disease Dictated By: Fracisco Copeland MD Signed By: <Electronically signed by Fracisco Copeland MD in OV> 10/16/24 2210 Medications / Prescriptions Medications or Prescriptions considered but not ordered:: none Medication administrations:: Medication Administration History Discontinued Medications Al Hydrox/Mg Hydrox/Simethicone (Mg Hyd/Al Hyd/Andie (Maalox Reg) Susp 30 Ml Udc) 30 ml PO X1 ONE Stop: 10/17/24 00:18 Last Admin: 10/17/24 00:24 Dose: 30 ml Documented By: SOLO Sodium Chloride (Ns) 1,000 mls @ 999 mls/hr IV .Q1H1M ONE Stop: 10/17/24 01:18 Last Admin: 10/17/24 00:38 Dose: 999 mls/hr Documented By: SOLO Lidocaine HCl (Lidocaine Viscous 2% 15 Ml Udc) 15 ml PO X1 ONE Stop: 10/17/24 00:18 Last Admin: 10/17/24 00:24 Dose: 15 ml Documented By: SOLO Metoclopramide HCl (Metoclopramide Inj 5 Mg/Ml Vial 2 Ml) 10 mg IVP X1 ONE; Protocol Stop: 10/17/24 00:18 Last Admin: 10/17/24 00:41 Dose: 10 mg Documented By: SOLO Pantoprazole Sodium (Pantoprazole Inj 40 Mg Vial) 40 mg IVP X1 ONE Stop: 10/17/24 00:18 Last Admin: 10/17/24 00:41 Dose: 40 mg Documented By: SOLO see above Consultations Consultation(s) initiated? (list below): No Diagnosis Differential diagnosis abdominal pain: pancreatitis and other (gastritis, GERD, PUD) Most likely diagnosis given after review of the tests above:: see clinical impression below Admission Indicated Admission indicated?: not indicated Admission Request Was there a request for admission?: No Disposition Plan Disposition Plan: Discharge Discharge Attestation Discharge Attestation: The patient and all family members were given an opportunity to ask questions and understood the discharge instructions. Discharge instructions specifically effects, indications for sooner follow up or return to the emergency department, and the expected course of current diagnosis. Patient condition: Stable Discharge Plan Plan Patient Disposition: HOME (Self Care) Prescriptions/Referrals Prescriptions/Med Rec: New sucralfate [Carafate] 100 mg/mL suspension 10 ml PO BID Qty: 1000 0RF metoclopramide HCl [Reglan] 5 mg tablet 5 mg PO QDAY Qty: 28 0RF Rx Instructions: Patient to take 1 tablet 30 minutes prior to breakfast and 30 minutes prior to bedtime. No Action pravastatin 40 mg Tablet 40 mg PO QDAY aspirin 81 mg Tablet 81 mg PO QDAY Jardiance 25 mg Tablet 25 mg PO QDAY insulin glargine [Basaglar KwikPen U-100 Insulin] 100 unit/mL (3 mL) Insulin Pen 15 unit SUBCUT QPM Eliquis 5 mg Tablet 5 mg PO BID levothyroxine 150 mcg tablet 150 mcg PO QDAY Patient Comments: TAKE 1 TABLET BY MOUTH EVERY DAY IN THE MORNING ON EMPTY STOMACH FOR 90 DAYS loratadine 10 mg tablet 10 mg PO QDAY Patient Comments: TAKE 1 TABLET BY MOUTH EVERY DAY pantoprazole 40 mg tablet,delayed release (DR/EC) 40 mg PO QPM Patient Comments: TAKE 1 TABLET BY MOUTH EVERY DAY baclofen 10 mg tablet 5 mg PO QDAY PRN (Reason: back pain) Patient Comments: TAKE 1/2 TABLET BY MOUTH EVERY DAY FOR 30 DAYS 90 metoprolol succinate 25 mg tablet extended release 24 hr 25 mg PO QDAY Patient Comments: TAKE 1 TABLET BY MOUTH EVERY DAY FOR 90 DAYS (DME) FreeStyle Mike 3 Sensor Device See Rx Instructions .Route Qty: 1 0RF Rx Instructions: As directed (DME) FreeStyle Mike 3 [place] Misc See Rx Instructions .Route Qty: 1 0RF Rx Instructions: As directed Referrals: No Primary/Family,Physician [Primary Care Provider] - In 1 week Problem List Clinical Impression: Gastritis Patient/Caregiver Discharge Instructions Discharge Activity: activity as tolerated Diet Instructions: Clear liquid for 24 hours and advance as tolerated. Avoid dairy products and spicy foods Education Materials: ED Gastritis (Adult) Additional Instructions: Medication as directed. Follow with primary care doctor in 7 to 10 days for consideration of referral to GI specialist for upper endoscopy. Print Language: Palauan Stand Alone Forms: [facility] Award Info., Patient Portal Info Letter
[2024-10-17 00:20] VITALS: BP 133/73; PULSE 62; RESP 18; TEMP 36.6; O2SAT 99
[2024-10-17] MEDS: LIDOCAINE VISCOUS 2% 15 ML UDC PO (00:24)
[2024-10-17] MEDS: MG HYD/AL HYD/SIME (Maalox Reg) SUSP 30 ML UDC PO (00:24)
[2024-10-17] MEDS: SODIUM CHLORIDE 0.9% 1000 ML 1,000 ML 999 ML IV (00:38)
[2024-10-17] MEDS: METOCLOPRAMIDE INJ 5 MG/ML VIAL 2 ML 10 MG IVP (00:41)
[2024-10-17 00:47] VITALS: BP 133/73; PULSE 65; RESP 12; O2SAT 99
[2024-10-17 02:12] VITALS: BP 130/85; PULSE 85; RESP 14; TEMP 37; O2SAT 94
== END 2024-10-17 02:13 | disposition home or self-care (01) ==
PROVIDERS: Physician Assistant; Emergency Provider Emergency Medicine
DX: K29.70 Gastritis, unspecified, without bleeding (principal); R00.1 Bradycardia, unspecified; E78.00 Pure hypercholesterolemia, unspecified; I10 Essential (primary) hypertension
CPT/HCPCS: 36415; 71045; 80053; 81001; 82010; 82803; 83690; 84478; 84484; 85025; 93005; 96361; 96374; 96375; 99283; J2470; J2765; J3490; J7030; A9270

== ENCOUNTER 2024-10-31 08:46 | Outpatient (RCR) | payer MEDICAID, SELFPAY | END 2024-11-19 23:59 | disposition home or self-care (01) | LOC: SCTC 08:46 | PROVIDERS: PCP Family Medicine; Referring Provider Internal Medicine Hematology & Oncology; Visit Provider Internal Medicine Hematology & Oncology | DX: C7A.8 Other malignant neuroendocrine tumors (principal); C7B.8 Other secondary neuroendocrine tumors; E03.9 Hypothyroidism, unspecified; E11.9 Type 2 diabetes mellitus without complications; I25.2 Old myocardial infarction | CPT/HCPCS: 96372; J2353 ==

== ENCOUNTER 2024-11-28 08:54 | Outpatient (RCR) | payer MEDICAID, SELFPAY | END 2024-12-20 23:59 | disposition home or self-care (01) | LOC: SCTC 08:54 | PROVIDERS: PCP Physician Assistant; Referring Provider Internal Medicine Hematology & Oncology; Visit Provider Internal Medicine Hematology & Oncology | DX: C7A.8 Other malignant neuroendocrine tumors (principal); C7B.8 Other secondary neuroendocrine tumors; E03.9 Hypothyroidism, unspecified; Z79.890 Hormone replacement therapy; E11.9 Type 2 diabetes mellitus without complications; I25.2 Old myocardial infarction | CPT/HCPCS: 96372; J2353 ==

== ENCOUNTER 2024-12-26 08:20 | Outpatient (RCR) | payer MEDICAID, SELFPAY ==
--- NOTE | 2024-12-25 14:35 | CTCFLWUP_ITS ---
Patient: FLAKITA ROSS : 1965 Page 4 of 7 FOLLOW UP NOTE DATE OF SERVICE: 12/25/2024 NAME: FLAKITA ROSS ACCOUNT: [id number] : 1965 AGE: 59 INTERVAL HISTORY: Subjective: She is complainingof chest pain. Patient is actually gaining weight. She is being scheduled for colonoscopy medications and Supplements - Jardiance - Insulin Review of Systems General: Positive for fatigue. Negative for weight loss. Endocrine: Positive for uncontrolled diabetes. Gastrointestinal: Negative for diarrhea. 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 April 2023: Ms. Ross had myocardial infarction. During the workup she was found to have multiple lesions in the liver. 07/31/2023: Ms. 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 aspirin - 81 mg 1 tab Daily 2. Augmentin - 500-125 mg 1 tab 1 tab twice daily 3. Basaglar KwikPen U-100 Insulin - 100 unit/mL (3 mL) 10 Unit Daily 4. Eliquis - 5 mg 1 tab Twice a Day 5. Jardiance - 25 mg 1 tab Daily 6. levothyroxine - 112 mcg 1 tab Daily 7. lisinopril - 5 mg 1 tab Daily 8. loratadine - 10 mg 1 tab Daily 9. pantoprazole - 40 mg 1 Daily 10. rosuvastatin - 20 mg 1 tab Daily Medications Last Reconciled by Yoly Lynn MD on 12/25/2024 ALLERGIES: Penicillins REVIEW OF SYSTEMS: A complete 14-point review of systems was performed and is negative except as noted in interval history. PHYSICAL EXAMINATION: VITAL SIGNS: Temperature?98.7, B/P?112/72, Oxygen?Saturation?96% Weight?160?lbs (Change?since?11/28/24:?3.4?lbs) PAIN: 0 - No pain ECOG Performance Status: 1 - Symptomatic; ambulatory; restricted in strenuous activity GENERAL APPEARANCE: Appears well, in no apparent distress, appropriately interactive. HEENT: Normocephalic, no temporal wasting, normal conjunctiva, no scleral icterus, normal hearing, lips without lesions, neck normal range of motion. CARDIOVASCULAR: Not assessed. PULMONARY: Normal respiratory effort, no respiratory distress or use of accessory muscles, speaking in full sentences, no tachypnea. EXTREMITIES: No pedal edema or cyanosis. SKIN: Normal skin appearance. NEUROLOGIC: Alert and oriented x4. PSHYCHIATRIC: Appropriate affect, mood normal, behavior normal, intact thought and speech. LABORATORY DATA: I have personally reviewed and interpreted each of the patient?s relevant lab tests, abnormal findings are below: Date 07/27/24 10/16/24 ??WHITE?BLOOD?COUNT?(Thou/mm3) 6.5 9.5 ??RED?BLOOD?COUNT?(Miln/mm3) 3.48?L 3.88?L ??HEMOGLOBIN?(gm/dl) 11.2?L 12.3 ??HEMATOCRIT?(%) 33.9?L 38.5 ??PLATELET?COUNT?(Thou/mm3) 161 222 ??NEUTROPHILS?%,?AUTO?(%) 66 71 ??LYMPH?%,?AUTO?(%) 22 21 ??NEUTROPHILS,?AUTO?(Thou/mm3) 4.3 6.7 ??GLUCOSE,RANDOM?(mg/dL) 133?H 187?H ??BLOOD?UREA?NITROGEN?(mg/dL) 10 9 ??CREATININE?(mg/dL) 0.80 1.00 ??SODIUM?(mmol/L) 142 137 ??POTASSIUM?(mmol/L) 3.6 4.1 ??CHLORIDE?(mmol/L) 104 102 ??CrCl?(CandG)?(ml/min) 75.93 65.29 ??AST/SGOT?(Unit/L) ? 24 ??ALT/SGPT?(Unit/L) 11 17 ??ALKALINE?PHOSPHATASE?(Unit/L) 71 122?H ??BILIRUBIN,?TOTAL?(mg/dL) 0.4 0.4 ??PROTEIN?TOTAL?(gm/dl) 5.1?L 6.9 ??ALBUMIN,?SERUM?(gm/dl) 3.3?L 4.3 ??GLOBULIN?(gm/dl) 1.8?L 2.6 ??ALBUMIN/GLOBULIN?RATIO 1.8 1.7 ??CALCIUM,?SERUM?(mg/dL) 8.9 9.6 ??CALCIUM?SERUM?(CORRECTED)?(mg/dL) 9.5 9.6 ASSESSMENT/PLAN: 1. 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 No clinical symptoms. 2. Hypothyroidism of 40 years duration. Currently Ms. Ross is on levothyroxine. 3. Type 2 diabetes of 3 years duration 4. 70 pound weight loss in 1 year (September 2022?September 2023) 5. Myocardial infarction April 2023. Currently being followed by Dr. Guillen of [place]. Zackery lee, patient with neuroendocrine tumor metastatic to liver, presents for follow-up with improving chromogranin levels and stable weight, but reports persistent fatigue and uncontrolled diabetes. Neuroendocrine tumor metastatic to liver Assessment: Patient's condition appears stable based on improving chromogranin levels (61 in May, down from 74 in March and 65 prior) and stable weight. Previous PET-DOTATATE scan from November showed numerous liver lesions. Patient reports persistent fatigue but denies weight loss. Lab results show WBC 6.8, hemoglobin 13.8, and normal liver enzymes, further supporting disease stability. Current labs are not available Patient given a slip for labs Repeat PET dotatate scan to see if there is a new lesion in the chest as patient is symptomatic with chest pain Echocardiogram to evaluate for carcinoid syndrome Continue octreotide RTC once labs and imaging is complete ORDERS: Order # Description [id number] PET/CT of Skull to mid-thigh for Restaging [id number] Urine 5 HIAA [id number] Chromogranin A [id number] CBC + Comprehensive Metabolic Panel [id number] Lab Appointment [id number] Follow Up 4 Week [id number] CBC + Comprehensive Metabolic Panel [id number] Lab Appointment [id number] CBC + Comprehensive Metabolic Panel [id number] Lab Appointment [id number] CBC + Comprehensive Metabolic Panel [id number] Lab Appointment [id number] CBC + Comprehensive Metabolic Panel [id number] Lab Appointment [id number] CBC + Comprehensive Metabolic Panel [id number] Lab Appointment [id number] CBC + Comprehensive Metabolic Panel [id number] Lab Appointment [id number] CBC + Comprehensive Metabolic Panel [id number] Lab Appointment [id number] CBC + Comprehensive Metabolic Panel [id number] Lab Appointment [id number] CBC + Comprehensive Metabolic Panel [id number] Lab Appointment [id number] CBC + Comprehensive Metabolic Panel [id number] Lab Appointment RETURN TO CLINIC: I reviewed the diagnosis, prognosis, and recommended treatment/procedure options with the patient (and/or their legal passenger service representative), including the potential benefits, risks, side effects and alternative therapies. We also discussed the option of no treatment and the possibility of clinical trial participation, if applicable. All questions were addressed, and they demonstrated understanding. They provided informed consent to proceed with the proposed plan of care. BILLING AND COMPLIANCE: I reviewed external records from providers outside my specialty as summarized above. I spent a total of 50 minutes on this patient?s care on the day of their visit excluding time spent related to any billed procedures. This time includes time spent with the patient as well as time spent documenting in the medical record, reviewing patients records and tests, obtaining history, placing orders, communicating with other healthcare professionals, counseling the patient, family or caregiver, and/or care coordination for the diagnoses above. Electronically Signed by: Cristi Escamilla MD T: 2:33 PM CC: PCP: Sherry Christiansen Referring: Sherry Christiansen This document was completed utilizing speech recognition software. Grammatical errors, random word insertions, pronoun errors, and incomplete sentences are an occasional consequence of this system due to software limitations, ambient noise, and hardware issues. Any formal questions or concerns about the content, text or information contained within the body of this dictation should be directly addressed to the provider for clarification.
== END 2025-01-19 23:59 | disposition home or self-care (01) ==
LOC: SCTC 08:20
PROVIDERS: PCP Physician Assistant; Referring Provider Physician Assistant; Visit Provider Internal Medicine Hematology & Oncology
DX: C7A.8 Other malignant neuroendocrine tumors (principal); C7B.8 Other secondary neuroendocrine tumors; E11.9 Type 2 diabetes mellitus without complications; Z79.4 Long term (current) use of insulin; Z79.84 Long term (current) use of oral hypoglycemic drugs
CPT/HCPCS: 96372; 99212; J2353; G0463

== ENCOUNTER → 2024-12-30 | Outpatient (CLI) | payer MEDICAID, SELFPAY ==
--- NOTE | 2024-12-30 06:00 | EKG_ITS ---
[facility] Test Date: 2024-12-30 Pat Name: SINA PATHAK Department: Room: - Gender: Female District Representative: ALICIA : 1965 Requested By: Deion Fischer Order Number: [id number] Reading MD: Deion Fischer Measurements Intervals [place] Rate: 59 P: 64 MS: 169 QRS: 61 QRSD: 94 T: 67 QT: 402 QTc: 401 Interpretive Statements SINUS BRADYCARDIA POSSIBLE LEFT ATRIAL ENLARGEMENT [-0.1mV P WAVE IN V1/V2] Compared to ECG 10/16/2024 21:55:25 No significant changes /[id number]/[email or web address]/[id number]
[2024-12-30 11:54] LABS: Alanine Aminotransferase 14 U/L (10-49); Albumin, Serum 4.7 gm/dL (3.4-4.8); Albumin/Globulin Ratio 1.8 (1.2-2.2); Alkaline Phosphatase 117 U/L (46-116); Anion Gap 8 (7-16); Aspartate Amino Transferase 19 U/L (0-34); BUN/Creatinine Ratio 10 Ratio (12-20); Bilirubin,Total 0.5 mg/dL (0.3-1.2); Blood Urea Nitrogen 11 mg/dL (9-23); Calcium 9.7 mg/dL (8.3-10.6); Calcium (Corrected) 9.7 mg/dL (8.5-10.1); Carbon Dioxide 28.3 mMol/L (20.0-31.0); Chloride 103 mMol/L (98-107); Creatinine (Component) 1.1 mg/dL (0.6-1.3); Globulin 2.6 gm/dL (2.3-3.5); Glucose 323 mg/dL (74-106); Osmolality,Calculated 288 (275-295); Potassium 5.2 mMol/L (3.4-5.1); Sodium 139 mMol/L (136-145); Total Protein 7.3 gm/dL (5.7-8.2); eGFR 58 See Note
== END | disposition home or self-care (01) ==
LOC: SLAB 01-02 07:52
PROVIDERS: PCP Physician Assistant; Referring Provider Internal Medicine Gastroenterology; Visit Provider Internal Medicine Gastroenterology
DX: R10.84 Generalized abdominal pain (principal); C7A.1 Malignant poorly differentiated neuroendocrine tumors
CPT/HCPCS: 36415; 80053; 93005

== ENCOUNTER 2025-01-23 08:47 | Outpatient (RCR) | payer MEDICAID, SELFPAY | END 2025-02-19 23:59 | disposition home or self-care (01) | LOC: SCTC 08:47 | PROVIDERS: PCP Physician Assistant; Referring Provider Physician Assistant; Visit Provider Internal Medicine Hematology & Oncology | DX: C7A.8 Other malignant neuroendocrine tumors (principal); C7B.8 Other secondary neuroendocrine tumors; E03.9 Hypothyroidism, unspecified; Z79.890 Hormone replacement therapy; E11.9 Type 2 diabetes mellitus without complications | CPT/HCPCS: 96372; J2353 ==

== ENCOUNTER → 2025-02-19 | Outpatient (CLI) | payer MEDICAID, SELFPAY ==
--- NOTE | 2025-02-19 09:30 | ECHO_ITS ---
Patient Info Name: Flakita Ross Age: 59 years : 1965 Gender: Female Ht: 170 cm Wt: 73 kg BSA: 1.87 m2 BP: 109 / 66 mmHg HR: 65 bpm Exam Date: 02/19/2025 9:03 AM Admit Date: 02/19/2025 Site: [facility] Room Number: ECHO Patient Status: O Exam Type: CA echo doppler complete Senior Android Developer: Yecenia Thompson Ordering Physician: Cristi Escamlila Referring Physician: Cristi Escamilla Study Info Indications Malignant neoplasm of liver, not specified as primary or sec - Primary Location: SDIM Left Ventricular Outflow Tract Name Value Normal LVOT 2D LVOT Diameter 2.0 cm LVOT Doppler LVOT Peak Velocity 85 cm/s LVOT Mean Gradient 2 mmHg LVOT VTI 16 cm LVOT VTI/AV VTI Ratio 0.8 LVOT Stroke Volume 50 ml Pulmonic Valve Name Value Normal PV Doppler PV Peak Velocity 81 cm/s Mitral Valve Name Value Normal MV Doppler MV Mean Gradient 1 mmHg MV Decel Harmon 201 cm/s2 MV PHT 76 ms MV Area (PHT) 2.9 cm2 4.0-5.0 MV Area (Cont Eq VTI) 1.8 cm2 MV Diastolic Function MV E Peak Velocity 52 cm/s MV A Peak Velocity 57 cm/s MV E/A 0.9 MV Annular TDI MV Septal e' Velocity 4.8 cm/s MV E/e' (Septal) 10.9 MV Lateral e' Velocity 9.4 cm/s MV E/e' (Lateral) 5.6 MV e' Average 7.08 cm/s MV E/e' (Average) 8.3 Tricuspid Valve Name Value Normal TV Regurgitation Doppler TR Peak Velocity 172 cm/s Estimated PAP/RSVP RA Pressure 3 mmHg <=5 PA Systolic Pressure 15 mmHg <36 RV Systolic Pressure 15 mmHg <36 Aortic Valve Name Value Normal AV 2D/MM AV Cusp Sep (MM) 1.4 cm AV Doppler AV Peak Velocity 128 cm/s AV Mean Gradient 3 mmHg AV VTI 21 cm AV Area (Cont Eq VTI) 2.4 cm2 >=3.0 AV Area (Cont Eq Brady) 2.1 cm2 AV DI (Brady) 0.66 AV Regurgitation 2D LVOT Area 3.1 cm2 Ventricles Name Value Normal LV Dimensions 2D/MM IVS Diastolic Thickness (2D) 0.8 cm 0.6-0.9 LVID Diastole (2D) 4.4 cm 3.8-5.2 LVIW Diastolic Thickness (2D) 1.0 cm 0.6-0.9 LVID Systole (2D) 2.5 cm 2.2-3.5 LVOT Diameter 2.0 cm LV Mass (2D Cubed) 128.02 g 67.00-162.00 LV Mass Index (2D Cubed) 68 g/m2 43-95 Relative Wall Thickness (2D) 0.45 <=0.42 IVS/LVIW Diastolic Thickness (2D) 0.80 0.00-1.50 LV Fractional Shortening/Ejection Fraction 2D/MM LV Fractional Shortening (2D) 43 % 27-45 LV EF (2D Martinichholz) 75 % Atria Name Value Normal LA Dimensions LA Volume (4C A-L) 36 ml LA Volume (BP A-L) 46 ml Left Ventricle Left ventricular chamber dimension is normal. Left ventricular systolic function is normal with visually estimated ejection fraction of 60-65%. There is concentric remodeling noted in the left ventricle. Left ventricular segmental wall motion is normal. There is grade I diastolic dysfunction in the left ventricle. Right Ventricle Right ventricular chamber dimension is normal. Right ventricular systolic function is normal. Left Atrium Left atrial chamber dimension is normal. Right Atrium Right atrial chamber dimension is normal. Aortic Valve The aortic valve is trileaflet. There is no aortic valve sclerosis. There is no aortic valve stenosis with a peak velocity of 128 cm/s, mean gradient of 3 mmHg, and aortic valve area of 2.4 cm2. There is no aortic valve regurgitation. Pulmonic Valve The pulmonic valve is normal. There is no pulmonic valve stenosis. There is no pulmonic regurgitation. Mitral Valve The mitral valve has normal leaflets. There is no mitral valve stenosis. There is trace mitral valve regurgitation. Tricuspid Valve The tricuspid valve leaflets are normal. There is no tricuspid valve stenosis. There is mild tricuspid valve regurgitation. No pulmonary hypertension, estimated pulmonary arterial systolic pressure is 15 mmHg and systemic blood pressure of 109 mmHg in systole. Pericardium/Pleural The pericardium appears normal. There is no pericardial effusion. No pleural effusion visualized. Inferior Vena Cava Normal inferior vena cava with >50% collapse upon inspiration consistent with normal right atrial pressure, 3 mmHg. Aorta The aortic measurements are indexed to age and body surface area. The aortic root at the sinus of Valsalva is not well visualized. The prox ascending aorta is not well visualized. Summary 1. Left ventricle size is normal and systolic function is normal. Estimated ejection fraction is 60-65%. There is grade I diastolic dysfunction. 2. Right ventricle chamber size is normal and systolic function is normal. Estimated RVSP is 15 mmHg. 3. There is trace mitral valve regurgitation. 4. There is mild tricuspid valve regurgitation. 5. Normal IVC with estimated RA pressure 3 mmHg. Report Signatures Finalized by Landon Liz on 02/21/2025 08:24 AM
== END | disposition home or self-care (01) ==
PROVIDERS: PCP Physician Assistant; Referring Provider Internal Medicine Hematology & Oncology; Visit Provider Internal Medicine Hematology & Oncology
DX: I50.30 Unspecified diastolic (congestive) heart failure (principal); I08.1 Rheumatic disorders of both mitral and tricuspid valves; C22.9 Malignant neoplasm of liver, not specified as primary or secondary; C7A.1 Malignant poorly differentiated neuroendocrine tumors
CPT/HCPCS: 93306